=== PATIENT | male | born 1990 | race African-American/Black ===

== ENCOUNTER 2017-03-08 06:37 | Day surgery (SDC) | payer OTHER ==
[2017-03-07 11:33] VITALS: BMI 30.6
[2017-03-08] MEDS ORDERED: PROPOFOL 20 ML ONE ×3 (07:56)
[2017-03-08] MEDS ORDERED: MIDAZOLAM HCL 2 MG/2 ML SINGLE DOSE VIAL ONE ×2 (07:57)
[2017-03-08] MEDS ORDERED: SUCCINYLCHOLINE CHLORIDE 200 MG/10 ML VIAL ONE (07:57)
[2017-03-08] MEDS ORDERED: ROCURONIUM BROMIDE 50 MG/5 ML VIAL ONE (07:57)
[2017-03-08] MEDS ORDERED: LIDOCAINE 1%/EPI 1:100000 (50 ML MULTI DOSE VIAL) ONE ×2 (08:03→09:11)
[2017-03-08] MEDS ORDERED: COCAINE HCL 4% TOPICAL SOLUTION 4 ML BOTTLE TP ONE ×2 (08:07→09:48)
[2017-03-08] MEDS ORDERED: LIDOCAINE 1%/EPI 1:100000 (20 ML MULTI DOSE VIAL) INF ONE ×2 (08:46)
[2017-03-08] MEDS ORDERED: ONDANSETRON 4 MG/2 ML VIAL ONE (10:08)
[2017-03-08] MEDS ORDERED: DEXAMETHASONE SOD PHOSPHATE 4 MG/1 ML VIAL ONE ×2 (10:08→13:49)
[2017-03-08] MEDS ORDERED: KETOROLAC TROMETHAMINE 30 MG/1 ML VIAL ONE (10:09)
[2017-03-08] MEDS ORDERED: NEOSTIGMINE METHYLSULFATE 0.5 MG/ML - 10 ML MDV ONE (10:11)
[2017-03-08] MEDS ORDERED: DEXAMETHASONE SOD PHOSPHATE 10 MG/1 ML VIAL IVPUSH ONE (10:24)
[2017-03-08] MEDS ORDERED: NALOXONE HCL 0.4 MG/ML VIAL ONE (10:24)
[2017-03-08] MEDS ORDERED: ACETAMINOPHEN 650 MG/20.3 ML ORAL SOLUTION (CUPS) PO PRN (10:24)
[2017-03-08] MEDS ORDERED: OXYCODONE/APAP 5/325MG COMBO TABLET PO PRN (10:24)
[2017-03-08] MEDS ORDERED: ONDANSETRON 4 MG/2 ML VIAL IVPUSH PRN (11:28)
[2017-03-08] MEDS ORDERED: oxyCODONE HCL 5 MG TABLET PO PRN (12:54)
[2017-03-08] MEDS ORDERED: ACETAMINOPHEN 325 MG TABLET (FP) PO PRN (12:54)
[2017-03-08] MEDS: DEXAMETHASONE SOD PHOSPHATE 10 MG/1 ML VIAL IVPUSH ONE ×2 (14:05→14:30)
[2017-03-08] MEDS: LACTATED RINGERS SOLUTION 1,000 ML IV SCH ×2 (15:00→22:57)
[2017-03-08] MEDS: morphine CARPU-JECT 4 MG/1 ML DISP.SYRIN IVPUSH PRN (20:27)
[2017-03-08] MEDS ORDERED: SUCRALFATE 1 GM/10 ML UNIT DOSE CUPS PO SCH (22:00)
[2017-03-08] MEDS ORDERED: RANITIDINE HCL 150 MG/10 ML UNIT-DOSE CUP PO SCH (22:00)
[2017-03-09] MEDS: morphine CARPU-JECT 4 MG/1 ML DISP.SYRIN IVPUSH PRN (02:32)
--- NOTE | 2017-03-09 08:39 | OP ---
DATE OF OPERATION: 03/08/2017 SURGEON: Donny Johnson MD PREOPERATIVE DIAGNOSIS: Severe obstructive sleep apnea, microglossia, adenotonsillar hypertrophy, deviated septum, and turbinate hypertrophy. POSTOPERATIVE DIAGNOSIS: Severe obstructive sleep apnea, microglossia, adenotonsillar hypertrophy, deviated septum, and turbinate hypertrophy. PROCEDURE: Partial midline glossectomy, adenotonsillectomy, septoplasty, and submucosal resection of bilateral inferior turbinates. INDICATIONS: Patient is a 26-year-old male who has a history of chronic severe snoring, witnessed apnea, and daytime fatigue. He had a previous sleep study which showed evidence of very severe obstructive sleep apnea with an AHI index of 107 with oxygen desaturation at 74%. He was unable to tolerate CPAP despite prolonged attempts and adjustments. He also has chronic nasal congestion, mouth breathing. On serial exam, he was noted to have marked tonsil and adenoid hypertrophy with edematous uvula and marked microglossia as well as marked deviated septum bilaterally and turbinate hypertrophy, and given lack of response to gradual medical therapy, he is now here for formal surgery. Patient understands risks, benefits, and alternatives and did wish to proceed. ANESTHESIA: General with endotracheal intubation. DESCRIPTION OF PROCEDURE: The patient was brought to the operating room and placed in the supine position. After successful induction of anesthesia and placement of an endotracheal tube, a shoulder roll was placed, and the patients face was prepped and draped in the usual sterile fashion. The McIvor mouth gag was placed into the oral cavity and retracted open to expose the pharynx, which was suspended from the Jones stand. The tonsils were noted to be 3.5+ bilaterally and markedly cryptic and filled with necrotic debris. The tonsillar fossa was injected with 8 mL of 1% lidocaine with 1:100,000 epinephrine. After exam, the Coblation device with the EVac Xtra handpiece was used to perform a subcapsular removal of bilateral tonsils, preserving anterior and posterior tonsillar pillar mucosa. Bleeding was controlled using bipolar Coblation device. No active bleeding was noted. Attention was then brought to the nasopharynx where a red rubber catheter was placed into the left nasal cavity into the nasopharynx and retracted superiorly. The nasopharynx was visualized in a mirror, and it was noted to have significant adenoid hypertrophy. Adenoids were ablated using Coblation device under mirror visualization, and bleeding was controlled with bipolar. Catheter and mouth gag were removed. There was no evidence of injury to dentition or mucosa. Attention was then brought to the tongue. A 2-0 silk was used to retract the tongue anteriorly. The 30-degree endoscope was brought in to visualize the oropharynx and hypopharynx, and the Coblation device with the EVac Xtra handpiece was used to perform a wedge resection of the posterior tongue along the midline extending from 1 cm anterior to the circumvallate papillae, posteriorly into the vallecula. Dissection was carried within 1.5 cm of the midline to ensure integrity of the lingual neurovascular supply, and more posteriorly, dissection was carried laterally, and the lingual tonsils were also ablated as visualized. Epiglottis was noted and left intact. Bleeding was controlled with the bipolar. No active bleeding was noted, and 2-0 silk was removed. Attention was then brought to the nasal cavity, and pledgets soaked in 4% cocaine were placed in the bilateral nasal cavities for vasoconstriction. Additional 8 mL of 1% lidocaine with 1:100,000 epinephrine were then injected into bilateral septal mucosa as well as inferior turbinate mucosa. The septum was addressed first. A standard right-sided hemitransfixtion incision was made, and a mucoperichondrial flap then elevated on the right side. A vertically oriented septal cartilage incision was made leaving a 2 cm anterior and superior strut, and a mucoperichondrial flap then elevated on the opposite side. Area of deflected cartilage was removed using a swivel knife as well as Alida forceps and Bodfish-Keller loop forceps, with improvement in the nasal airway. No [id number] septal perforation was noted, and septal mucosa was meshed to itself using 3-0 chromic sutures. Attention was then brought to the inferior turbinates. A stab incision was made anteriorly. A submucosal tunnel was created. The microdebrider with the inferior turbinate handpiece was used for submucosal removal of tissue anteriorly and superiorly down to the level of the periosteum. The inferior turbinates were now outfractured. NasoPore gel packing was placed into the bilateral nasal cavities for further hemostasis. The patent tolerated the procedure well and was extubated and brought to the recovery room in stable condition. ESTIMATED BLOOD LOSS: 50 mL. SPECIMENS: Bilateral tonsils and septal cartilage. DONNY JOHNSON M.D. MIRIAM/[id number] cc: Jessica Verduzco MD
--- NOTE | 2017-03-09 09:20 | PN ---
Progress Note (short form) - Note Progress Note: ANESTHESIOLOGY POST-OP CHECK 26M s/p tonsillectomy, adenoidectomy, septoplasty and glossectomy under general anesthesia, POD #1. No acute complaints. Pain 7/10 and tolerable. Ambulating, voiding, denies N/V. Vital Signs Temperature 98.7 F 03/09/17 06:29 Pulse Rate 99 H 03/09/17 06:29 Respiratory Rate 20 03/09/17 06:29 Blood Pressure 123/70 03/09/17 06:29 O2 Sat by Pulse Oximetry (%) 99 03/08/17 21:03 Active Medications Acetaminophen (Tylenol Oral Solution -) 650 mg PO Q4H PRN PRN Reason: FEVER OR PAIN Acetaminophen (Tylenol -) 650 mg PO Q6H PRN PRN Reason: PAIN 6-10 Fentanyl (Sublimaze Injection -) 50 mcg IVPUSH [id number] PRN PRN Reason: PAIN Stop: 03/11/17 11:29 Lactated Ringer's (Lactated Ringers Solution) 1,000 mls @ 125 mls/hr IV ASDIR [facility] Last Admin: 03/08/17 22:57 Dose: 125 mls/hr Morphine Sulfate (Morphine Injection -) 4 mg IVPUSH Q4H PRN PRN Reason: PAIN Last Admin: 03/09/17 02:32 Dose: 4 mg Oxycodone HCl (Roxicodone -) 10 mg PO Q6H PRN PRN Reason: PAIN 6-10 Ranitidine HCl (Zantac Oral Solution -) 150 mg PO BID [facility] Last Admin: 03/08/17 21:53 Dose: 150 mg Sucralfate (Carafate Oral Suspension -) 1 gm PO BID [facility] Last Admin: 03/08/17 21:53 Dose: 1 gm Gen: awake, alert, NAD No apparent anesthesia complications. Pain controlled. Continue management as per primary team.
[2017-03-09 09:58] VITALS: BP 129/75; PULSE 98; TEMP 98.9
--- NOTE | 2017-03-09 15:34 | PATH ---
Surgical Pathology Report Patient Name: ALICE PERES [facility]. Rec. #: [id number] /Age/Gender: 1990 (Age: 26) / M Account: [id number] Location: AMBULATORY SURG Taken: 03/08/2017 Received: 03/08/2017 Reported: 03/09/2017 Physicians: Donny Godinez M.D. Specimen(s) Received A: TONSIL, RIGHT B: TONSIL, LEFT C: NASAL SEPTUM AND CARTILAGE Clinical History Deviated nasal septum, hypertrophic tonsils, macroglossia Final Diagnosis A. TONSIL, RIGHT, EXCISION: REACTIVE FOLLICULAR LYMPHOID HYPERPLASIA. B. TONSIL, LEFT, EXCISION: REACTIVE FOLLICULAR LYMPHOID HYPERPLASIA. C. NASAL SEPTUM, PARTIAL EXCISION: BONE AND CARTILAGE CONSISTENT WITH PORTIONS OF NASAL SEPTUM. Electronically Signed Doug Sebastian M.D. Gross Description A. Received in formalin labeled "right tonsil," is a 3.3 x 2.3 x 1.2 cm ovoid portion of soft tissue, consistent with a tonsil. The outer surface is jaramillo-pink, convoluted and varies from smooth to cauterized. Sectioning reveals homogeneous jaramillo-pink, smooth parenchyma with cryptic architecture. No discrete lesions are identified. A ambulatory services representative section is submitted in one cassette. B. Received in formalin labeled "tonsil left," is a 3.5 x 1.9 x 1.4 cm ovoid portion of soft tissue, consistent with a tonsil. The outer surface is jaramillo-pink, convoluted and varies from smooth to cauterized. Sectioning reveals homogeneous jaramillo-pink, smooth parenchyma with cryptic architecture. No discrete lesions are identified. A ambulatory services representative section is submitted in one cassette. C. Received in formalin labeled "nasal septum and cartilage," is a 3.1 x 2.0 x 0.2 cm aggregate of jaramillo, irregular portions of bone and cartilage. Pattern Technician sections are submitted in one cassette, following decalcification. 03/08/201703/08/2017
== END 2017-03-09 09:56 | disposition home or self-care (01) ==
LOC: JASUSAT 06:37 → JASU-SURG 06:37 → J4S 14:32 → JASUSAT 03-09 09:56
PROVIDERS: ATTEND Otolaryngology
PROC: 09BL0ZZ Excision of Nasal Turbinate, Open Approach (ICD-10-PCS; 2017-03-08)
PROC: 0CB70ZZ Excision of Tongue, Open Approach (ICD-10-PCS; principal; 2017-03-08 08:00)
PROC: 0CTPXZZ Resection of Tonsils, External Approach (ICD-10-PCS; 2017-03-08 08:00)
PROC: 0CTQ0ZZ Resection of Adenoids, Open Approach (ICD-10-PCS; 2017-03-08 08:00)
PROC: 09BM0ZZ Excision of Nasal Septum, Open Approach (ICD-10-PCS; 2017-03-08 08:00)
DX: G47.33 Obstructive sleep apnea (adult) (pediatric) (principal); Q38.3 Other congenital malformations of tongue; J35.03 Chronic tonsillitis and adenoiditis; J34.2 Deviated nasal septum; J34.3 Hypertrophy of nasal turbinates
CPT/HCPCS: 88302-TC; 88304-TC; 88311-TC; 94760

== ENCOUNTER 2019-05-26 18:18 | Inpatient (IN) | payer OTHER ==
--- NOTE | 2019-05-26 19:49 | PDOC ---
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 denies dysuria, discharge from penis. denies STI exposure. No pmhx Past History - Past Medical History Allergies/Adverse Reactions: Allergies Allergy/AdvReac Type Severity Reaction Status Date / Time azithromycin Allergy Verified 05/26/19 22:37 ceftriaxone Allergy Verified 05/26/19 22:37 Home Medications: Ambulatory Orders NK [No Known Home Medication] 03/07/17 Anemia: No Asthma: No Cancer: No Cardiac Disorders: No CVA: No COPD: No CHF: No Dementia: No Diabetes: No GI Disorders: No Disorders: No HTN: No Hypercholesterolemia: No Liver Disease: No Seizures: No Thyroid Disease: No - Psycho Social/Smoking Cessation Hx Smoking History: Current every day smoker Information on smoking cessation initiated: Yes Hx Alcohol Use: No Drug/Substance Use Hx: No Hx Substance Use Treatment: No Review of Systems - Review of Systems Able to Perform ROS?: Yes Is the patient limited Belarusian proficient: No Constitutional: No: Symptoms Reported, See HPI, Chills, Diaphoresis, Fever, Loss of Appetite, Malaise, Night Sweats, Weakness, Weight Stable, Unintentional Wgt. Loss, Unexplained wgt Loss, Other : Yes: Testicular Mass, Testicular Swelling. No: Symptoms Reported, See HPI, Burning, Dysuria, Discharge, Frequency, Flank Pain, Hematuria, Incontinence, Pain, Urgency, Lesions, Testicular Pain, Other *Physical Exam - Vital Signs Last Vital Signs Temp Pulse Resp BP Pulse Ox 98.7 F 76 19 121/73 99 05/26/19 18:25 05/26/19 18:25 05/26/19 18:25 05/26/19 18:25 05/26/19 18:25 - Physical Exam General Appearance: Yes: Appropriately Dressed Respiratory/Chest: positive: Lungs Clear, Normal Breath Sounds Cardiovascular: positive: Regular Rhythm, Regular Rate Male Genitalia: positive: testicular tenderness, testicular mass (left testicular mass, no cremasteric reflex noted to left + cremasteric to right). negative: epididymus tender, inguinal hernia, hernia Extremity: positive: Normal Capillary Refill Integumentary: positive: Normal Color, Dry, Warm Neurologic: positive: Fully Oriented, Alert, Normal Mood/Affect ED Treatment Course - LABORATORY CBC & Chemistry Diagram: 05/26/19 20:53 05/26/19 20:53 Medical Decision Making - Medical Decision Making 05/26/19 21:11 Scrotal ultrasound: Space a complex mass lesion with cystic and soft tissue components is seen within the left scrotum posteriorly measuring approximately 3.3 x 3 x 2.4 cm. Finding appears to be separate from the left epididymis. 05/26/19 21:24 Dr. barney retail operations specialist. paged the number retail operations specialist. pending call back from Urology 05/26/19 21:56 . Case discussed with Dr. Shanks recommends n.p.o., ceftriaxone to cover possible infection. Recommends admitting tonight. 05/26/19 22:38 SHORTLY AFTER RECEIVING CEFTRIAXONE PATIENT WITH THROAT PAIN, LIP SWELLING, UVULA SWELLING. CEFTRIAXONE STOPPED. 05/26/19 22:41 S/P EPI, SOLUMEDROL AND BENADCRYL. UVUAL SWELLING DECREASED, LIP SWELLING DECREASED. NO BREATHING DIFFICULTY NOTED. 05/27/19 01:45 patient admitted under hospitalist service Discharge - Discharge Information Problems reviewed: Yes Clinical Impression/Diagnosis: Testicular mass Allergic drug reaction Qualifiers: Encounter type: initial encounter Qualified Code(s): T78.40XA - Allergy, unspecified, initial encounter Anaphylactic reaction Qualifiers: Encounter type: initial encounter Qualified Code(s): T78.2XXA - Anaphylactic shock, unspecified, initial encounter - Admission Yes - Follow up/Referral - Patient Discharge Instructions - Post Discharge Activity
[2019-05-26 20:36] LABS: PH,URINE 5.5 (5.0-8.0); URINE APPEARANCE CLEAR; URINE BILIRUBIN NEGATIVE (NEGATIVE); URINE COLOR YELLOW; URINE GLUCOSE (UA) NEGATIVE (NEGATIVE); URINE KETONE NEGATIVE (NEGATIVE); URINE LEUK ESTERASE NEGATIVE (NEGATIVE); URINE NITRITE NEGATIVE (NEGATIVE); URINE PROTEIN NEGATIVE (NEGATIVE)
[2019-05-26 21:13] LABS: BASO % 0.4 % (0-2.0); EOS % 3.2 % (0-4.5); HEMATOCRIT 47.6 % (35.4-49); HEMOGLOBIN 16.2 GM/dL (11.7-16.9); LYMPH % 31.4 % (8-40); MCH 31.7 pg (25.7-33.7); MEAN CELL VOLUME 93.1 fl (80-96); MEAN PLT VOLUME 8.6 fl (7.5-11.1); MONO % 9.9 % (3.8-10.2); NEUT % 55.1 % (42.8-82.8); PLATELET COUNT 320 K/MM3 (134-434); RBC 5.11 M/mm3 (4.00-5.60); RDW 12.6 % (11.9-15.9); WHITE BLOOD COUNT 11.9 K/mm3 (4.0-10.0)
[2019-05-26 21:36] LABS: INR 1.06 (0.83-1.09); PROTHROMBIN TIME (PATIENT) 12.5 SEC (9.7-13.0)
[2019-05-26] MEDS ORDERED: CEFTRIAXONE 1,000 MG in DEXTROSE 5%-WATER - 50 ML IVPB ONE (21:38)
[2019-05-26 21:53] LABS: BILIRUBIN,TOTAL 0.4 mg/dL (0.2-1); BLOOD UREA NITROGEN 22.1 mg/dL (7-18); CALCIUM 9.1 mg/dL (8.5-10.1); CREATININE 1.2 mg/dL (0.55-1.3); POTASSIUM 3.8 mmol/L (3.5-5.1); TOT PROT 7.6 g/dl (6.4-8.2)
[2019-05-26] MEDS ORDERED: CEFTRIAXONE 1 GM/50 ML BAG ONE (21:53)
[2019-05-26] MEDS ORDERED: FAMOTIDINE 20 MG/50 ML IVPB 20 MG/50 ML MG IVPB ONE ×2 (22:17→22:47)
[2019-05-26] MEDS ORDERED: methylPREDNISolone NA SUCC 1000 MG/8 ML VIAL IVPB ONE (22:17)
[2019-05-26] MEDS ORDERED: methylPREDNISolone NA SUCC 125 MG/2 ML VIAL ONE (22:19)
[2019-05-26] MEDS ORDERED: EPINEPHrine/PF 1 MG/1 ML (1:1,000) AMPULE ONE (22:25)
[2019-05-26] MEDS ORDERED: methylPREDNISolone NA SUCC 125 MG/2 ML VIAL IVPUSH ONE (22:44)
[2019-05-26] MEDS ORDERED: EPINEPHrine 1:1,000 0.3 MG/0.3 ML SYR IM ONE (22:45)
[2019-05-26] MEDS ORDERED: methylPREDNISolone NA SUCC 1000 MG/8 ML VIAL ONE (22:47)
--- NOTE | 2019-05-26 22:48 | PN ---
Teaching Attending Note Name of Resident: Wolfgang Velazquez ATTENDING PHYSICIAN STATEMENT I saw and evaluated the patient. I reviewed the resident's note and discussed the case with the resident. I agree with the resident's findings and plan as documented. 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 Denies dysuria, discharge from penis. No fevers or history of trauma. Denied significant weight loss, Patient received ceftriaxone in ER and developed allergic reaction with angioedema to face. He subsequently received epi pen, methylprednisone, benadryl, and famotidine. OBJECTIVE: Last Vital Signs Temp Pulse Resp BP Pulse Ox 98.7 F 71 16 118/53 L 98 05/26/19 18:25 05/27/19 01:14 05/27/19 01:14 05/27/19 01:14 05/27/19 01:14 gen -aax3 heent - clear sclera,, moist mucous membranes cv -s1+s2+rrr chest- cta b/l abd -soft, nt GI -left scrota hard mass Abnormal Lab Results 05/26/19 05/26/19 05/26/19 20:53 20:53 20:53 WBC 11.9 H PTT (Actin FS) 38.0 H BUN 22.1 H AST 14 L Imaging reviewed Scrotal ultrasound: Space a complex mass lesion with cystic and soft tissue components is seen within the left scrotum posteriorly measuring approximately 3.3 x 3 x 2.4 cm. Finding appears to be separate from the left epididymis. ASSESSMENT AND PLAN: Left Scrotal mass with dimensions described as above- concerning for testicular cancer. Bhcg was wnl. Leukocytosis may be reactive to mass. Clean UA, no dysuria or other urinary symptoms suggest against UTI. Severe allergic reaction to ceftriaxone Much improve after received solumedrol , epi pen, benadryl -med/surg -monitor VS closely -methylprednisone 40mg IV q8hrs -benadryl 25mg q6hrs -urology evaluation -tylenol po prn for testicular mass pain -avoid ceftriaxone or other B-lactam antibiotics -f/u gc/chlamydia urine NAAT -dvt ppx -heparin sc #Mild norma -iv fluid hydration
--- NOTE | 2019-05-26 23:03 | HP ---
CHIEF COMPLAINT: PCP: none HISTORY OF PRESENT ILLNESS: 28 y/o/m with PMHx of sleep apnea here for a testicular mass that he noted today. Patient states that he was driving when he felt some pain in his scrotum and noticed a lump on his left testicle. When he came home he noticed his left testis was hard and larger compared to his right and had his significant other look at it who agreed that it looked different and brought him to the hospital. The pain is intermittent, sharp, worse when he is sitting. He is able to walk with some pain. He states he has had congestion and cold symptoms for the last few days. Patient denies any dysuria, discharge, N/V/D, fever, constipation, or other symptoms at home. Patient does not take medications at home. Denies any history of STI's. Patient had an allergic reaction azithromycin last year when he went to [facility] for an URI. On interview patient had just received ceftriaxone and complained of difficulty breathing and swallowing, sore throat, and swelling of his lips. Patient was able to swallow some water. Family history of COPD and CAD on his mother's side. No known family history of cancer. ER course was notable for: (1) Scrotal ultrasound: Space a complex mass lesion with cystic and soft tissue components is seen within the left scrotum posteriorly measuring approximately 3.3 x 3 x 2.4 cm. Finding appears to be separate from the left epididymis. (2) Dr. Shanks consulted, recommended NPO, Ceftriaxone and admission (3) Received Ceftriaxone, immediately had lip swelling, throat pain, uvula swelling. Ceftriaxone stopped. Patient given Epi, Benadryl, Solumedrol with improvement of symptoms. Recent Travel: PAST MEDICAL HISTORY: sleep apnea PAST SURGICAL HISTORY: tonsillectomy, adenoidectomy, septoplasty, glossectomy Social History: Smoking: denies Alcohol: social EtOH Drugs: denies Patient is sexually active with one partner, does not use protection. Allergies azithromycin Allergy (Verified 05/26/19 22:37) ceftriaxone Allergy (Verified 05/26/19 22:37) HOME MEDICATIONS: Home Medications Medication Instructions Recorded NK [No Known Home Medication] 03/07/17 REVIEW OF SYSTEMS Constitutional: moderate distress. denies weakness, fever. HEENT: sore throat, lip swelling. no changes in vision Cardio: denies chest pain Resp: SOB, congestion. denies productive cough. wheezing GI: Nausea. denies abd pain, vomiting, diarrhea, constipation : testicular mass. denies dysuria, hematuria, discharge SKIN: denies rashes PHYSICAL EXAMINATION Vital Signs - 24 hr 05/26/19 18:25 Temperature 98.7 F Pulse Rate 76 Respiratory 19 Rate Blood Pressure 121/73 O2 Sat by Pulse 99 Oximetry (%) GENERAL: moderate distress. Awake, alert, and fully oriented HEAD: NC/AT EYES: PERRL, EOMI EARS, NOSE, THROAT: congested nasal pharynx, swelling of oropharynx without erythema, able to visualize the uvula. Moist mucous membranes. NECK: supple, no cervical lymphadenopathy LUNGS: No stridor. Breath sounds equal, clear to auscultation bilaterally. No wheezes, and no crackles. No accessory muscle use. HEART: Regular rate and rhythm, normal S1 and S2 without murmur, rub or gallop. ABDOMEN: normoactive bowel sounds, soft, nontender, nondistended : Enlarged left testis compared to right testis. Firm, non mobile mass felt on superior and posterior aspect of left testis with tenderness to palpation and without erythema of the scrotum. No varicoceles noted. Right testis normal to palpation. No drainage noted from penile meatus. No swelling of the penis noted. No lesions noted on the penile shaft. UPPER EXTREMITIES: 2+ pulses, warm, well-perfused. No cyanosis. No clubbing. No peripheral edema. LOWER EXTREMITIES: 2+ pulses, warm, well-perfused. No peripheral edema. NEUROLOGICAL: Normal speech. Normal gait. 5/5 strength upper and lower extremities. PSYCHIATRIC: Cooperative. Good eye contact. Appropriate mood and affect. SKIN: Warm, dry, normal turgor, no rashes or lesions noted, normal capillary refill. Laboratory Results - last 24 hr 05/26/19 05/26/19 05/26/19 20:19 20:53 20:53 WBC 11.9 H RBC 5.11 Hgb 16.2 Hct 47.6 MCV 93.1 MCH 31.7 MCHC 34.0 RDW 12.6 Plt Count 320 MPV 8.6 Absolute Neuts (auto) 6.5 Neutrophils % 55.1 Lymphocytes % 31.4 Monocytes % 9.9 Eosinophils % 3.2 Basophils % 0.4 Nucleated RBC % 0 PT with INR INR PTT (Actin FS) Sodium 141 Potassium 3.8 Chloride 106 Carbon Dioxide 27 Anion Gap 9 BUN 22.1 H Creatinine 1.2 Est GFR (CKD-EPI)AfAm 94.14 Est GFR (CKD-EPI)NonAf 81.23 Random Glucose 106 Calcium 9.1 Total Bilirubin 0.4 AST 14 L ALT 36 Alkaline Phosphatase 69 LD Total 183 Total Protein 7.6 Albumin 4.0 Beta HCG, Quant 1.2 Urine Color Yellow Urine Appearance Clear Urine pH 5.5 Ur Specific Cardale 1.026 Urine Protein Negative Urine Glucose (UA) Negative Urine Ketones Negative Urine Blood Negative Urine Nitrite Negative Urine Bilirubin Negative Urine Urobilinogen 1.0 Ur Leukocyte Esterase Negative Blood Type Antibody Screen 05/26/19 05/26/19 20:53 20:53 WBC RBC Hgb Hct MCV MCH MCHC RDW Plt Count MPV Absolute Neuts (auto) Neutrophils % Lymphocytes % Monocytes % Eosinophils % Basophils % Nucleated RBC % PT with INR 12.50 INR 1.06 PTT (Actin FS) 38.0 H Sodium Potassium Chloride Carbon Dioxide Anion Gap BUN Creatinine Est GFR (CKD-EPI)AfAm Est GFR (CKD-EPI)NonAf Random Glucose Calcium Total Bilirubin AST ALT Alkaline Phosphatase LD Total Total Protein Albumin Beta HCG, Quant Urine Color Urine Appearance Urine pH Ur Specific Cardale Urine Protein Urine Glucose (UA) Urine Ketones Urine Blood Urine Nitrite Urine Bilirubin Urine Urobilinogen Ur Leukocyte Esterase Blood Type O POSITIVE Antibody Screen Negative ASSESSMENT/PLAN: 28 y/o/m with PMHx of sleep apnea here for a testicular mass that he noted today. 1)Testicular Mass - patient with newly noticed left testicular mass today -Scrotal U/S shows a 3.3 x 3 x 2.4 cm mass in the left testis with cystic and soft tissue components. -Consulted Dr. Shanks, Urology. Recommended - NPO, Ceftriaxone, admission to hospital -Patient received Ceftriaxone but immediately had an allergic reaction, abx discontinued -Will hold further abx, patient is afebrile with mild leukocystosis, testicular mass looks to be more cancerous than infectious in origin -NPO in anticipation of possible procedure -Ofirmev Q6h PRN for pain 2)Allergic reaction - patient has history of allergy to azithromycin, had an allergic reaction to ceftriaxone in ED -Received Benadryl, Solumedrol, Epi in the ER -Continue Bendaryl 25mg Q6H PO, Solumedrol 40mg IV Q8, Famotidine 20mg BID -monitor O2 saturation 3)NA - mild -IVF 4)FEN -NPO in anticipation of possible procedure -NS @ 75mls/hr 5)Prophylaxis -SCDs -Hold anticoags in anticipation of possible procedure 6)Disposition -Admitted to med/surg Visit type - Emergency Visit Emergency Visit: Yes ED Registration Date: 05/26/19 Care time: The patient presented to the Emergency Department on the above date and was hospitalized for further evaluation of their emergent condition. - New Patient This patient is new to me today: Yes Date on this admission: 05/27/19 - Critical Care Critical Care patient: No ATTENDING PHYSICIAN STATEMENT I saw and evaluated the patient. I reviewed the resident's note and discussed the case with the resident. I agree with the resident's findings and plan as documented. SUBJECTIVE: OBJECTIVE: ASSESSMENT AND PLAN:
[2019-05-26] MEDS: SODIUM CHLORIDE 1,000 ML IV SCH (23:57)
[2019-05-27] MEDS ORDERED: diphenhydrAMINE HCL 25 MG CAPSULE (FP) PO PRN (00:21)
[2019-05-27] MEDS ORDERED: methylPREDNISolone NA SUCC 40 MG/1 ML VIAL ONE ×2 (01:06→10:05)
[2019-05-27] MEDS: methylPREDNISolone NA SUCC 40 MG/1 ML VIAL IVPUSH SCH ×3 (01:10→18:12)
[2019-05-27] MEDS ORDERED: diphenhydrAMINE HCL 25 MG CAPSULE (FP) PO SCH (04:30)
[2019-05-27] MEDS ORDERED: diphenhydrAMINE HCL 25 MG CAPSULE (FP) PO ONE (06:12)
[2019-05-27 06:35] LABS: HEMATOCRIT 48.2 % (35.4-49); HEMOGLOBIN 16.8 GM/dL (11.7-16.9); MCH 32.6 pg (25.7-33.7); MEAN CELL VOLUME 93.3 fl (80-96); MEAN PLT VOLUME 8.7 fl (7.5-11.1); PLATELET COUNT 330 K/MM3 (134-434); RBC 5.16 M/mm3 (4.00-5.60); WHITE BLOOD COUNT 11.8 K/mm3 (4.0-10.0)
[2019-05-27 07:06] LABS: BILIRUBIN,TOTAL 0.6 mg/dL (0.2-1); BLOOD UREA NITROGEN 19.2 mg/dL (7-18); CALCIUM 9.3 mg/dL (8.5-10.1); POTASSIUM 4.4 mmol/L (3.5-5.1)
--- NOTE | 2019-05-27 08:23 | PN ---
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 Denies dysuria, discharge from penis. No fevers or history of trauma. Denied significant weight loss, Patient received ceftriaxone in ED and developed allergic reaction with angioedema to face. He subsequently received epi pen, methylprednisone, benadryl, and famotidine. - Current Medication List Current Medications: Active Medications Acetaminophen (Ofirmev Injection -) 1,000 mg IVPB Q6H PRN PRN Reason: PAIN LEVEL 1-5 Diphenhydramine HCl (Benadryl -) 25 mg PO Q6HPO [facility] Sodium Chloride (Normal Saline -) 1,000 mls @ 75 mls/hr IV ASDIR FARHAN Last Admin: 05/26/19 23:57 Dose: 75 mls/hr Famotidine/Sodium Chloride (Pepcid 20 Mg Premixed Ivpb -) 20 mg in 50 mls @ 100 mls/hr IVPB BID [facility] Methylprednisolone Sodium Succinate (Solu-Medrol -) 40 mg IVPUSH Q8H-IV [facility] Last Admin: 05/27/19 01:10 Dose: 40 mg - Objective Vital Signs: Vital Signs Temperature 98.2 F 05/27/19 06:28 Pulse Rate 99 H 05/27/19 06:28 Respiratory Rate 18 05/27/19 06:28 Blood Pressure 132/76 05/27/19 06:28 O2 Sat by Pulse Oximetry (%) 98 05/27/19 06:31 Additional Findings/Remarks: GENERAL: moderate distress. Awake, alert, and fully oriented HEAD: NC/AT EYES: PERRL, EOMI EARS, NOSE, THROAT: congested nasal pharynx, swelling of oropharynx without erythema, able to visualize the uvula. Moist mucous membranes. NECK: supple, no cervical lymphadenopathy LUNGS: No stridor. Breath sounds equal, clear to auscultation bilaterally. No wheezes, and no crackles. No accessory muscle use. HEART: Regular rate and rhythm, normal S1 and S2 without murmur, rub or gallop. ABDOMEN: normoactive bowel sounds, soft, nontender, nondistended : Enlarged left testis compared to right testis. Firm, non mobile mass felt on superior and posterior aspect of left testis with tenderness to palpation and without erythema of the scrotum. No varicoceles noted. Right testis normal to palpation. No drainage noted from penile meatus. No swelling of the penis noted. No lesions noted on the penile shaft. UPPER EXTREMITIES: 2+ pulses, warm, well-perfused. No cyanosis. No clubbing. No peripheral edema. LOWER EXTREMITIES: 2+ pulses, warm, well-perfused. No peripheral edema. NEUROLOGICAL: Normal speech. Normal gait. 5/5 strength upper and lower extremities. PSYCHIATRIC: Cooperative. Good eye contact. Appropriate mood and affect. SKIN: Warm, dry, normal turgor, no rashes or lesions noted, normal capillary refill. Labs: CBC, BMP 05/27/19 06:11 05/27/19 06:11 INR, PTT INR 1.06 (0.83-1.09) 05/26/19 20:53 - ....Imaging Ultrasound: Report Reviewed (Scrotal ultrasound: Space a complex mass lesion with cystic and soft tissue components is seen within the left scrotum posteriorly measuring approximately 3.3 x 3 x 2.4 cm. Finding appears to be separate from the left epididymis.) Problem List - Problems (1) Prophylactic measure Assessment/Plan: FEN IVF NPO until after testing monitor electrolyes DVT ambulatory low risk Dispo maintain as in patient full code discharge planning to home Code(s): Z29.9 - ENCOUNTER FOR PROPHYLACTIC MEASURES, UNSPECIFIED (2) Anaphylactic reaction Assessment/Plan: developed drug reaction with andioedema after dose of ceftriaxone given epi/benadryl/steroids/pepcid with resolution cont to monitor Code(s): T78.2XXA - ANAPHYLACTIC SHOCK, UNSPECIFIED, INITIAL ENCOUNTER Qualifiers: Encounter type: initial encounter Qualified Code(s): T78.2XXA - Anaphylactic shock, unspecified, initial encounter (3) Testicular mass Assessment/Plan: Scrotal ultrasound: Space a complex mass lesion with cystic and soft tissue components is seen within the left scrotum posteriorly measuring approximately 3.3 x 3 x 2.4 cm. Finding appears to be separate from the left epididymis. MRI of scrotum ordered and pending Dr Matamoros following Code(s): N50.89 - OTHER SPECIFIED DISORDERS OF THE MALE GENITAL ORGANS Visit type - Emergency Visit Emergency Visit: Yes ED Registration Date: 05/26/19 Care time: The patient presented to the Emergency Department on the above date and was hospitalized for further evaluation of their emergent condition. - New Patient This patient is new to me today: Yes Date on this admission: 05/28/19 - Critical Care Critical Care patient: No - Discharge Referral Referred to [facility] No
--- NOTE | 2019-05-27 09:48 | CON.GU ---
Consult Consult Specialty:: Urology Referred by:: ED Reason for Consultation:: 28 yo male w 2 days left hemiscrotal pain and swelling - Alcohol/Substance Use Hx Alcohol Use: No - Smoking History Smoking history: Current every day smoker Home Medications - Allergies Allergies/Adverse Reactions: Allergies Allergy/AdvReac Type Severity Reaction Status Date / Time azithromycin Allergy Verified 05/26/19 22:37 ceftriaxone Allergy Verified 05/26/19 22:37 - Home Medications Home Medications: Ambulatory Orders NK [No Known Home Medication] 03/07/17 Physical Exam- Vital Signs: Vital Signs Temperature 98.2 F 05/27/19 06:28 Pulse Rate 99 H 05/27/19 06:28 Respiratory Rate 18 05/27/19 06:28 Blood Pressure 132/76 05/27/19 06:28 O2 Sat by Pulse Oximetry (%) 98 05/27/19 06:31 Renal/: Yes: Scrotal Edema (left testicular/epididymal tenderness swelling and induration) Labs: CBC, BMP 05/27/19 06:11 05/27/19 06:11 Imaging - Results Ultrasound: Report Reviewed, Image Reviewed Problem List - Problems (1) Testicular mass Assessment/Plan: 28 yo male w left testicular mass Elevated WBC likely secondary to infection though could be elevated in if were a mass Clinical course more consistant w infection LDH and B neg so far AFP pending Cont IV abx MRI of the scrotum to elucidate clinical etiology Code(s): N50.89 - OTHER SPECIFIED DISORDERS OF THE MALE GENITAL ORGANS
[2019-05-27] MEDS ORDERED: FAMOTIDINE 20 MG/50 ML IVPB 20 MG/50 ML MG IVPB ONE (09:49)
[2019-05-27] MEDS: FAMOTIDINE 20 MG/50 ML IVPB 20 MG/50 ML MG IVPB SCH ×2 (09:55→21:50)
[2019-05-27] MEDS ORDERED: ACETAMINOPHEN INJECTION 100 ML IVPB ONE (11:45)
[2019-05-27] MEDS: ACETAMINOPHEN 1000 MG/100 ML VIAL (NON FORMULARY) IVPB PRN (11:49)
[2019-05-27 13:29] VITALS: BMI 31.9
--- NOTE | 2019-05-27 13:42 | CON.ID ---
Consult Consult Specialty:: infectious diseases Referred by:: Carole Reason for Consultation:: scrotal swelling /testicular swelling and pain - History of Present Illness Chief Complaint: testicular swelling History of Present Illness: 28 y/o/m with PMHx of sleep apnea here for a testicular mass that he noted today. Patient states that he was driving when he felt some pain in his scrotum and noticed a lump on his left testicle. When he came home he noticed his left testis was hard and larger compared to his right and had his significant other look at it who agreed that it looked different and brought him to the hospital. The pain is intermittent, sharp, worse when he is sitting. He is able to walk with some pain. He states he has had congestion and cold symptoms for the last few days. Patient denies any dysuria, discharge, N/V/D, fever, constipation, or other symptoms at home. patient currently is comfortable and no complaints family in room - History Source History Provided By: Patient Limitations to Obtaining History: No Limitations - Alcohol/Substance Use Hx Alcohol Use: No - Smoking History Smoking history: Former smoker Have you smoked in the past 12 months: No Home Medications - Allergies Allergies/Adverse Reactions: Allergies Allergy/AdvReac Type Severity Reaction Status Date / Time azithromycin Allergy Verified 05/26/19 22:37 ceftriaxone AdvReac Severe Difficulty Verified 05/28/19 15:54 Breathing - Home Medications Home Medications: Ambulatory Orders NK [No Known Home Medication] 03/07/17 Review of Systems - Review of Systems Constitutional: reports: No Symptoms Eyes: reports: No Symptoms HENT: reports: No Symptoms Neck: reports: No Symptoms Cardiovascular: reports: No Symptoms Respiratory: reports: No Symptoms Gastrointestinal: reports: No Symptoms Genitourinary: reports: Other (testicular pain,enlargement) Musculoskeletal: reports: No Symptoms Integumentary: reports: No Symptoms Neurological: reports: No Symptoms Endocrine: reports: No Symptoms Hematology/Lymphatic: reports: No Symptoms Psychiatric: reports: No Symptoms Physical Exam Vital Signs: Vital Signs Temperature 98.6 F 05/27/19 13:19 Pulse Rate 86 05/27/19 13:19 Respiratory Rate 18 05/27/19 13:19 Blood Pressure 123/70 05/27/19 13:19 O2 Sat by Pulse Oximetry (%) 96 05/27/19 12:27 Constitutional: Yes: Well Nourished, Calm, Mild Distress Neck: Yes: Supple, Trachea Midline Cardiovascular: Yes: Regular Rate and Rhythm Respiratory: Yes: Regular, CTA Bilaterally Gastrointestinal: Yes: Normal Bowel Sounds, Soft Renal/: Yes: Other (swelling and firmness of the lt testicle) Musculoskeletal: Yes: WNL Extremities: Yes: WNL Integumentary: Yes: WNL Neurological: Yes: Alert, Oriented Labs: CBC, BMP 05/27/19 06:11 05/27/19 06:11 Imaging - Results Chest X-ray: Report Reviewed, Image Reviewed Ultrasound: Report Reviewed, Image Reviewed Assessment/Plan 28 y/o/m with PMHx of sleep apnea here for a testicular mass that he noted today. testicular mass NA - mild i am worried that this could be malignancy plan will hold of on starting any abx continue current [facility] urology on case patient for mri of the scrotum will see what it shows
[2019-05-27] MEDS: diphenhydrAMINE HCL 25 MG CAPSULE (FP) PO SCH ×2 (15:40→18:00)
[2019-05-27] MEDS: SODIUM CHLORIDE 1,000 ML IV SCH ×2 (18:13→23:54)
[2019-05-28] MEDS: diphenhydrAMINE HCL 25 MG CAPSULE (FP) PO SCH ×3 (00:03→11:45)
[2019-05-28] MEDS: methylPREDNISolone NA SUCC 40 MG/1 ML VIAL IVPUSH SCH ×3 (01:58→17:38)
[2019-05-28] MEDS: SODIUM CHLORIDE 1,000 ML IV SCH ×2 (06:07→23:00)
--- NOTE | 2019-05-28 07:53 | PN ---
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 Denies dysuria, discharge from penis. No fevers or history of trauma. Denied significant weight loss, Patient received ceftriaxone in ED and developed allergic reaction with angioedema to face. He subsequently received epi pen, methylprednisone, benadryl, and famotidine. - Current Medication List Current Medications: Active Medications Acetaminophen (Ofirmev Injection -) 1,000 mg IVPB Q6H PRN PRN Reason: PAIN LEVEL 1-5 Last Admin: 05/27/19 11:49 Dose: 1,000 mg Diphenhydramine HCl (Benadryl -) 25 mg PO Q6HPO [facility] Last Admin: 05/28/19 06:08 Dose: 25 mg Sodium Chloride (Normal Saline -) 1,000 mls @ 75 mls/hr IV ASDIR FARHAN Last Admin: 05/28/19 06:07 Dose: 75 mls/hr Famotidine/Sodium Chloride (Pepcid 20 Mg Premixed Ivpb -) 20 mg in 50 mls @ 100 mls/hr IVPB BID [facility] Last Admin: 05/27/19 21:50 Dose: 100 mls/hr Methylprednisolone Sodium Succinate (Solu-Medrol -) 40 mg IVPUSH Q8H-IV [facility]AN Last Admin: 05/28/19 01:58 Dose: 40 mg - Objective Vital Signs: Vital Signs Temperature 97.7 F 05/28/19 05:00 Pulse Rate 75 05/28/19 05:00 Respiratory Rate 17 05/28/19 05:00 Blood Pressure 109/83 05/28/19 05:00 O2 Sat by Pulse Oximetry (%) 99 05/27/19 21:00 Additional Findings/Remarks: GENERAL: moderate distress. Awake, alert, and fully oriented HEAD: NC/AT EYES: PERRL, EOMI EARS, NOSE, THROAT: congested nasal pharynx, swelling of oropharynx without erythema, able to visualize the uvula. Moist mucous membranes. NECK: supple, no cervical lymphadenopathy LUNGS: No stridor. Breath sounds equal, clear to auscultation bilaterally. No wheezes, and no crackles. No accessory muscle use. HEART: Regular rate and rhythm, normal S1 and S2 without murmur, rub or gallop. ABDOMEN: normoactive bowel sounds, soft, nontender, nondistended : Enlarged left testis compared to right testis. Firm, non mobile mass felt on superior and posterior aspect of left testis with tenderness to palpation and without erythema of the scrotum. No varicoceles noted. Right testis normal to palpation. No drainage noted from penile meatus. No swelling of the penis noted. No lesions noted on the penile shaft. UPPER EXTREMITIES: 2+ pulses, warm, well-perfused. No cyanosis. No clubbing. No peripheral edema. LOWER EXTREMITIES: 2+ pulses, warm, well-perfused. No peripheral edema. NEUROLOGICAL: Normal speech. Normal gait. 5/5 strength upper and lower extremities. PSYCHIATRIC: Cooperative. Good eye contact. Appropriate mood and affect. SKIN: Warm, dry, normal turgor, no rashes or lesions noted, normal capillary refill. Labs: CBC, BMP 05/27/19 06:11 05/27/19 06:11 INR, PTT INR 1.06 (0.83-1.09) 05/26/19 20:53 - ....Imaging Ultrasound: Report Reviewed (Scrotal ultrasound: Space a complex mass lesion with cystic and soft tissue components is seen within the left scrotum posteriorly measuring approximately 3.3 x 3 x 2.4 cm. Finding appears to be separate from the left epididymis.)) MRI: Report Reviewed ( 3.8 x 3.2 x 2.6 cm enhancing left intratesticular mass suggestive of malignancy until proven otherwise. 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 No inguinal adenopathy seen. CT scan of the abdomen and pelvis is recommended for staging and excluding retroperitoneal lymphadenopathy.) Problem List - Problems (1) Prophylactic measure Assessment/Plan: FEN IVF NPO until after testing monitor electrolyes DVT ambulatory low risk Dispo maintain as in patient full code discharge planning to home Code(s): Z29.9 - ENCOUNTER FOR PROPHYLACTIC MEASURES, UNSPECIFIED (2) Anaphylactic reaction Assessment/Plan: resolved change benadryl to PRN allergy noted to ceftriaxone in computer Problems reviewed: Yes Code(s): T78.2XXA - ANAPHYLACTIC SHOCK, UNSPECIFIED, INITIAL ENCOUNTER Qualifiers: Encounter type: initial encounter Qualified Code(s): T78.2XXA - Anaphylactic shock, unspecified, initial encounter (3) Testicular mass Assessment/Plan: MRI noted CT pending for staging and exclusion of retroperitoneal adenopathy Dr Matamoros following AFP 19 Beta negative paln Left testicular mass for radical orchiectomy NPO past MN Type and screen done Code(s): N50.89 - OTHER SPECIFIED DISORDERS OF THE MALE GENITAL ORGANS Visit type - Emergency Visit Emergency Visit: Yes ED Registration Date: 05/26/19 Care time: The patient presented to the Emergency Department on the above date and was hospitalized for further evaluation of their emergent condition. - New Patient This patient is new to me today: No - Critical Care Critical Care patient: No - Discharge Referral Referred to [facility] No
[2019-05-28] MEDS: FAMOTIDINE 20 MG/50 ML IVPB 20 MG/50 ML MG IVPB SCH ×2 (09:56→21:32)
[2019-05-28 12:00] LABS: BASO % 0.1 % (0-2.0); HEMATOCRIT 47.6 % (35.4-49); HEMOGLOBIN 16.2 GM/dL (11.7-16.9); LYMPH % 10.9 % (8-40); MCH 32.1 pg (25.7-33.7); MCHC 34.1 g/dl (32.0-35.9); MEAN CELL VOLUME 94.4 fl (80-96); MEAN PLT VOLUME 8.4 fl (7.5-11.1); MONO % 6.1 % (3.8-10.2); NEUT % 82.9 % (42.8-82.8); PLATELET COUNT 346 K/MM3 (134-434); RBC 5.04 M/mm3 (4.00-5.60); WHITE BLOOD COUNT 13.1 K/mm3 (4.0-10.0)
--- NOTE | 2019-05-28 12:12 | PN ---
Progress Note, Physician History of Present Illness: stable no new issues awaiting for the mri report - Current Medication List Current Medications: Active Medications Acetaminophen (Ofirmev Injection -) 1,000 mg IVPB Q6H PRN PRN Reason: PAIN LEVEL 1-5 Last Admin: 05/27/19 11:49 Dose: 1,000 mg Diphenhydramine HCl (Benadryl -) 25 mg PO Q6HPO [facility] Last Admin: 05/28/19 11:45 Dose: 25 mg Sodium Chloride (Normal Saline -) 1,000 mls @ 75 mls/hr IV ASDIR FARHAN Last Admin: 05/28/19 06:07 Dose: 75 mls/hr Famotidine/Sodium Chloride (Pepcid 20 Mg Premixed Ivpb -) 20 mg in 50 mls @ 100 mls/hr IVPB BID [facility]AN Last Admin: 05/28/19 09:56 Dose: 100 mls/hr Methylprednisolone Sodium Succinate (Solu-Medrol -) 40 mg IVPUSH Q8H-IV [facility]AN Last Admin: 05/28/19 09:56 Dose: 40 mg - Objective Vital Signs: Vital Signs Temperature 97.5 F L 05/28/19 09:54 Pulse Rate 98 H 05/28/19 09:54 Respiratory Rate 19 05/28/19 09:54 Blood Pressure 118/60 05/28/19 09:54 O2 Sat by Pulse Oximetry (%) 99 05/27/19 21:00 Constitutional: Yes: No Distress, Calm Cardiovascular: Yes: Regular Rate and Rhythm Respiratory: Yes: Regular, CTA Bilaterally Gastrointestinal: Yes: Normal Bowel Sounds, Soft Genitourinary: Yes: Other (testicular pain) Musculoskeletal: Yes: WNL Extremities: Yes: WNL Neurological: Yes: Alert, Oriented Psychiatric: Yes: Alert, Oriented Labs: CBC, BMP 05/28/19 11:40 INR, PTT INR 1.06 (0.83-1.09) 05/26/19 20:53 Assessment/Plan 28 y/o/m with PMHx of sleep apnea here for a testicular mass that he noted today. testicular mass NA - mild plan continue current mgmt await for mri result monitor off of abx for now rest as per the team
[2019-05-28 12:19] LABS: ALBUMIN 3.8 g/dl (3.4-5.0); BILIRUBIN,TOTAL 0.4 mg/dL (0.2-1); BLOOD UREA NITROGEN 18.8 mg/dL (7-18); MAGNESIUM 2.7 mg/dL (1.8-2.4); TOT PROT 7.6 g/dl (6.4-8.2)
--- NOTE | 2019-05-28 15:57 | PN.GI ---
GI Progress Note Subjective: left testicular swelling w mild tenderness MRI appreciated - Objective Vital Signs: Vital Signs Temperature 97.8 F 05/28/19 15:13 Pulse Rate 92 H 05/28/19 15:13 Respiratory Rate 20 05/28/19 15:13 Blood Pressure 119/67 05/28/19 15:13 O2 Sat by Pulse Oximetry (%) 99 05/28/19 09:00 Labs: CBC, BMP 05/28/19 11:40 05/28/19 11:40 INR, PTT INR 1.06 (0.83-1.09) 05/26/19 20:53 Assessment/Plan Left testicular mass Scheduled for left radical orchiectomy in am For CT scan today Problem List - Problems (1) Testicular mass Assessment/Plan: Left testicular mass for radical orchiectomy AFP abnormal Code(s): N50.89 - OTHER SPECIFIED DISORDERS OF THE MALE GENITAL ORGANS
[2019-05-28] MEDS ORDERED: diphenhydrAMINE HCL 25 MG CAPSULE (FP) PO PRN (16:22)
[2019-05-28] MEDS: ACETAMINOPHEN 1000 MG/100 ML VIAL (NON FORMULARY) IVPB PRN (19:59)
[2019-05-29] MEDS: ACETAMINOPHEN 1000 MG/100 ML VIAL (NON FORMULARY) IVPB PRN ×2 (00:54→18:54)
[2019-05-29] MEDS: methylPREDNISolone NA SUCC 40 MG/1 ML VIAL IVPUSH SCH ×2 (01:04→09:27)
[2019-05-29] MEDS: FAMOTIDINE 20 MG/50 ML IVPB 20 MG/50 ML MG IVPB SCH ×2 (09:27→21:39)
[2019-05-29] MEDS ORDERED: LIDOCAINE HCL/PF 2% SDV 5ML VIAL ONE (09:48)
[2019-05-29] MEDS ORDERED: MIDAZOLAM HCL 2 MG/2 ML SINGLE DOSE VIAL ONE (09:49)
[2019-05-29] MEDS ORDERED: fentaNYL CITRATE 250 MCG/5 ML VIAL ONE (09:49)
[2019-05-29] MEDS ORDERED: PROPOFOL 20 ML ONE ×2 (09:49)
[2019-05-29] MEDS ORDERED: ONDANSETRON 4 MG/2 ML VIAL IVPUSH PRN (10:09)
[2019-05-29] MEDS ORDERED: IBUPROFEN 800 MG/8 ML IJ IVPB PRN (10:09)
[2019-05-29] MEDS ORDERED: DEXAMETHASONE SOD PHOSPHATE 4 MG/1 ML VIAL ONE (11:01)
[2019-05-29] MEDS ORDERED: BUPIVACAINE HCL/PF 0.5% (5 MG/ML) 30 ML VIAL IJ ONE (11:25)
[2019-05-29] MEDS ORDERED: IBUPROFEN 800 MG/8 ML IJ IVPB ONE ×2 (11:53→12:00)
[2019-05-29] MEDS ORDERED: ACETAMINOPHEN INJECTION 100 ML IVPB ONE (11:53)
[2019-05-29] MEDS ORDERED: ACETAMINOPHEN 1000 MG/100 ML VIAL (NON FORMULARY) IVPB ONE (11:55)
--- NOTE | 2019-05-29 12:06 | OP ---
DATE OF OPERATION: DATE OF DICTATION: 05/29/2019 PREOPERATIVE DIAGNOSIS: Left testicle mass. POSTOPERATIVE DIAGNOSIS: Left testicle mass. PROCEDURE: Left radical orchiectomy. SURGEON: Jacob Broussard MD INDICATION: The patient is a 28-year-old male with ultrasound and MRI that confirm left testicle mass, also has elevated alpha-fetoprotein. He is taken to the OR for radical orchiectomy. Risks, benefits, and alternatives discussed in detail. After informed consent was obtained, patient in OR, placed supine on the table. Cardiac monitoring was administered. General anesthesia established. The low abdomen and groin and testicles were prepped and draped in standard surgical fashion. At this point, an approximately 4-cm incision was created into the left groin with a number 15 blade, through the subcutaneous tissue. Naeem fascia was identified and incised and then the cord was identified emanating from the external ring. The external ring was incised and the cord was grasped and the testicle delivered from the scrotum. A Ramonita drain was placed to constrict the cord to prevent migration of blood superiorly. At this point, the testicle was freed from its scrotal wall attachment and then at this point the cord was suture ligated with number 1 Vicryl suture ligature, followed by 0 silk tie high at the level of the internal ring. The specimen was then amputated and the testicle with cord was sent to Pathology for analysis. The stump that was left in the patient was then tied down and there was no evidence of any bleeding from that stump. The external oblique aponeurosis was then closed with a 2-0 Vicryl suture. The subcutaneous tissue was closed with interrupted 3-0 chromic and the skin was closed with a 4-0 Monocryl followed by Dermabond. Dry dressing with fluffs and scrotal support were then placed. The patient was then awoke from anesthesia and transferred to recovery room in stable condition. There were no complications. Estimated blood loss was minimal. JACOB BROUSSARD M.D. [id number]
--- NOTE | 2019-05-29 12:10 | EKG ---
Test Reason : Blood Pressure : / mmHG Vent. Rate : 059 BPM Atrial Rate : 059 BPM P-R Int : 168 ms QRS Dur : 108 ms QT Int : 426 ms P-R-T Axes : 051 031 027 degrees QTc Int : 421 ms SINUS BRADYCARDIA EARLY REPOLARIZATION OTHERWISE NORMAL ECG NO PREVIOUS ECGS AVAILABLE Confirmed by CHRISTIAN GAYLE MD ([id number]) on 05/29/2019 12:09:54 PM Referred By: Confirmed By:CHRISTIAN GAYLE MD
--- NOTE | 2019-05-29 13:26 | PN ---
Progress Note, Physician History of Present Illness: stable no new issues mri seen and results noted urology plan noted - Current Medication List Current Medications: Active Medications Acetaminophen (Ofirmev Injection -) 1,000 mg IVPB Q6H PRN PRN Reason: PAIN LEVEL 1-5 Last Admin: 05/29/19 00:54 Dose: 1,000 mg Diphenhydramine HCl (Benadryl -) 25 mg PO Q6H PRN PRN Reason: ALLERGIES Fentanyl (Sublimaze Injection -) 50 mcg IVPUSH [id number] PRN PRN Reason: PAIN-PACU ORDER X 4 DOSES ONLY Sodium Chloride (Normal Saline -) 1,000 mls @ 75 mls/hr IV ASDIR FARHAN Last Admin: 05/28/19 23:00 Dose: 75 mls/hr Famotidine/Sodium Chloride (Pepcid 20 Mg Premixed Ivpb -) 20 mg in 50 mls @ 100 mls/hr IVPB BID F[facility]AN Last Admin: 05/29/19 09:27 Dose: 100 mls/hr Lactated Ringer's (Lactated Ringers Solution) 1,000 mls @ 125 mls/hr IV ASDIR FARHAN Ibuprofen (Caldolor Injection -) 800 mg IVPB Q6H PRN PRN Reason: Pain - Pacu Methylprednisolone Sodium Succinate (Solu-Medrol -) 40 mg IVPUSH Q8H-IV [facility]AN Last Admin: 05/29/19 09:27 Dose: 40 mg Ondansetron HCl (Zofran Injection) 4 mg IVPUSH Q6H PRN PRN Reason: NAUSEA AND/OR VOMITING - Objective Vital Signs: Vital Signs Temperature 98.1 F 05/29/19 11:45 Pulse Rate 72 05/29/19 12:45 Respiratory Rate 16 05/29/19 12:45 Blood Pressure 148/78 05/29/19 12:45 O2 Sat by Pulse Oximetry (%) 96 05/29/19 12:45 Constitutional: Yes: No Distress, Calm Cardiovascular: Yes: Regular Rate and Rhythm Respiratory: Yes: Regular, CTA Bilaterally Gastrointestinal: Yes: Normal Bowel Sounds, Soft Musculoskeletal: Yes: WNL Extremities: Yes: WNL Neurological: Yes: Alert, Oriented Psychiatric: Yes: Alert, Oriented Labs: CBC, BMP 05/28/19 11:40 05/28/19 11:40 INR, PTT INR 1.06 (0.83-1.09) 05/26/19 20:53 Assessment/Plan 28 y/o/m with PMHx of sleep apnea here for a testicular mass that he noted today. testicular mass NA - mild testicular malignancy plan patient for surgery await for ct of the abd pelvis reading
[2019-05-29] MEDS ORDERED: MORPHINE SULFATE 2 MG/ML VIAL IVPUSH PRN ×2 (14:37→21:40)
[2019-05-29] MEDS: LACTATED RINGERS SOLUTION 1,000 ML IV SCH (14:44)
--- NOTE | 2019-05-29 15:39 | PN ---
Physical Exam: SUBJECTIVE: Patient seen and examined at the bedside. OBJECTIVE: Patient is a 28 year old male admitted on 05/26/2019 for left testicular pain and swelling. Denies dysuria or discharge from penis. No fevers or history of trauma. Denied significant weight loss, Patient received ceftriaxone in ED and developed allergic reaction with angioedema to face. He subsequently received epi pen, methylprednisone, benadryl, and famotidine. Vital Signs Period Temp Pulse Resp BP Sys/Tate Pulse Ox Last 24 Hr 97.5 F-98.4 F 62-80 13-20 132-158/66-100 95-100 GENERAL: The patient is awake, alert, and fully oriented, in no acute distress. HEAD: Normal with no signs of trauma. EYES: PERRL, extraocular movements intact, sclera anicteric, conjunctiva clear. No ptosis. ENT: Ears normal, nares patent, oropharynx clear without exudates, moist mucous membranes. NECK: Trachea midline, full range of motion, supple. LUNGS: clear to auscultation bilaterally, no wheezing HEART: Regular rate and rhythm, S1, S2 without murmur, rub or gallop. ABDOMEN: Soft, nontender, nondistended, normoactive bowel sounds, no guarding, no rebound, no hepatosplenomegaly, no masses. EXTREMITIES: 2+ pulses, warm, well-perfused, no edema. NEUROLOGICAL: Normal speech, gait not observed. PSYCH: Normal mood, normal affect. SKIN: Warm, dry, normal turgor, no rashes or lesions noted Laboratory Results - last 24 hr 05/26/19 20:19 C. trachomatis (SHAWNEE) Negative N. gonorrhoeae (SHAWNEE) Negative Active Medications Generic Name Dose Route Start Last Admin Trade Name Freq PRN Reason Stop Dose Admin Acetaminophen 1,000 mg 05/26/19 23:19 05/29/19 00:54 Ofirmev Injection - IVPB 1,000 mg Q6H PRN Administration PAIN LEVEL 1-5 Diphenhydramine HCl 25 mg 05/28/19 16:22 Benadryl - PO Q6H PRN ALLERGIES Fentanyl 50 mcg 05/29/19 10:09 Sublimaze Injection - IVPUSH [id number] PRN PAIN-PACU ORDER X 4 DOSES ONLY Sodium Chloride 1,000 mls @ 75 mls/hr 05/26/19 23:15 05/28/19 23:00 Normal Saline - IV 75 mls/hr ASDIR FARHAN Administration Famotidine/Sodium Chloride 20 mg in 50 mls @ 100 mls/hr 05/27/19 10:00 09:27 Pepcid 20 Mg Premixed Ivpb - IVPB 100 mls/hr BID FARHAN Administration Lactated Ringer's 1,000 mls @ 125 mls/hr 05/29/19 10:15 05/29/19 14:44 Lactated Ringers Solution IV Not Given ASDIR FARHAN Ibuprofen 800 mg 05/29/19 10:09 Caldolor Injection - IVPB Q6H PRN Pain - Pacu Methylprednisolone Sodium Succinate 40 mg 05/27/19 02:00 05/29/19 09:27 Solu-Medrol - IVPUSH 40 mg Q8H-IV FARHAN Administration Morphine Sulfate 2 mg 05/29/19 14:37 05/29/19 14:55 Morphine Sulfate IVPUSH 2 mg Q4H PRN Administration PAIN 6-10 Ondansetron HCl 4 mg 05/29/19 10:09 Zofran Injection IVPUSH Q6H PRN NAUSEA AND/OR VOMITING ASSESSMENT/PLAN: Problem List - Problems (1) Allergic drug reaction Assessment/Plan: resolved benadryl prn, oxygen stable on room air, no wheezing, no difficulty breathing stop solumedrol Code(s): T78.40XA - ALLERGY, UNSPECIFIED, INITIAL ENCOUNTER Qualifiers: Encounter type: initial encounter Qualified Code(s): T78.40XA - Allergy, unspecified, initial encounter (2) Anaphylactic reaction Assessment/Plan: resolved Code(s): T78.2XXA - ANAPHYLACTIC SHOCK, UNSPECIFIED, INITIAL ENCOUNTER Qualifiers: Encounter type: initial encounter Qualified Code(s): T78.2XXA - Anaphylactic shock, unspecified, initial encounter (3) Testicular mass Assessment/Plan: MRI noted s/p surgical Left testicular mass radical orchiectomy urology following awaiting pathology Code(s): N50.89 - OTHER SPECIFIED DISORDERS OF THE MALE GENITAL ORGANS (4) Prophylactic measure Assessment/Plan: FEN IVF monitor electrolyes DVT ambulatory Dispo maintain as in patient full code discharge planning to home Code(s): Z29.9 - ENCOUNTER FOR PROPHYLACTIC MEASURES, UNSPECIFIED Visit type - Emergency Visit Emergency Visit: Yes ED Registration Date: 05/26/19 Care time: The patient presented to the Emergency Department on the above date and was hospitalized for further evaluation of their emergent condition. - New Patient This patient is new to me today: Yes Date on this admission: 05/29/19 - Critical Care Critical Care patient: No - Discharge Referral Referred to [facility] No
[2019-05-29] MEDS: SODIUM CHLORIDE 1,000 ML IV SCH (17:05)
[2019-05-29] MEDS: traMADol HCL 50 MG TABLET PO PRN (22:48)
[2019-05-30] MEDS: SODIUM CHLORIDE 1,000 ML IV SCH ×2 (00:36→10:30)
[2019-05-30] MEDS: ACETAMINOPHEN 325 MG TABLET (FP) PO PRN (06:14)
--- NOTE | 2019-05-30 08:42 | PN ---
Progress Note (short form) - Note Progress Note: POD1 s/p radical orchiectomy under GA. Resting comfortable in bed, pain well controlled, VSS, no anesthetic issues/complications noted.
[2019-05-30 09:49] LABS: BASO % 0.1 % (0-2.0); EOS % 0.1 % (0-4.5); HEMOGLOBIN 14.9 GM/dL (11.7-16.9); LYMPH % 26.1 % (8-40); MCHC 33.8 g/dl (32.0-35.9); MEAN CELL VOLUME 94.6 fl (80-96); MEAN PLT VOLUME 8.4 fl (7.5-11.1); MONO % 9.9 % (3.8-10.2); NEUT % 63.8 % (42.8-82.8); PLATELET COUNT 289 K/MM3 (134-434); RBC 4.65 M/mm3 (4.00-5.60); RDW 13.1 % (11.9-15.9); WHITE BLOOD COUNT 10.7 K/mm3 (4.0-10.0)
[2019-05-30] MEDS: traMADol HCL 50 MG TABLET PO PRN ×2 (10:06→18:00)
[2019-05-30 10:14] LABS: ALBUMIN 3.2 g/dl (3.4-5.0); BILIRUBIN,TOTAL 0.6 mg/dL (0.2-1); BLOOD UREA NITROGEN 16.2 mg/dL (7-18); CALCIUM 8.2 mg/dL (8.5-10.1); CREATININE 0.9 mg/dL (0.55-1.3); MAGNESIUM 2.7 mg/dL (1.8-2.4); POTASSIUM 3.9 mmol/L (3.5-5.1); TOT PROT 6.4 g/dl (6.4-8.2)
[2019-05-30] MEDS: FAMOTIDINE 20 MG/50 ML IVPB 20 MG/50 ML MG IVPB SCH ×2 (10:30→22:30)
[2019-05-30] MEDS: LACTATED RINGERS SOLUTION 1,000 ML IV SCH (10:57)
--- NOTE | 2019-05-30 11:28 | PN ---
Physical Exam: SUBJECTIVE: Patient seen and examined at the bedside. denies pain, shortness of breath or any malaise. pain controlled currently. OBJECTIVE: Patient is a 28 year old male admitted on 05/26/2019 for left testicular pain and swelling. Denies dysuria or discharge from penis. No fevers or history of trauma. Denied significant weight loss. pelvis MRI showed (3.8 x 3.2 x 2.6 cm) enhancing left intratesticular mass suggestive of malignancy until proven otherwise. 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 No inguinal adenopathy seen. CT A/P: BL prominent pelvis lymph nodes along external iliac chains. He is s/p Left testicular mass radical orchiectomy on 05/29/19. Further plans are pending urology recommendations. On admssion, patient received ceftriaxone in ED and developed allergic reaction with angioedema to face. He subsequently received epi pen, methylprednisone, benadryl, and famotidine. Vital Signs Period Temp Pulse Resp BP Sys/Tate Pulse Ox Last 24 Hr 97.9 F-98.7 F 64-90 13-20 132-158/57-100 95-100 GENERAL: The patient is awake, alert, and fully oriented, in no acute distress. HEAD: Normal with no signs of trauma. EYES: PERRL, extraocular movements intact, sclera anicteric, conjunctiva clear. No ptosis. ENT: Ears normal, nares patent, oropharynx clear without exudates, moist mucous membranes. NECK: Trachea midline, full range of motion, supple. LUNGS: clear to auscultation bilaterally, no wheezing HEART: Regular rate and rhythm, S1, S2 without murmur, rub or gallop. ABDOMEN: Soft, nontender, nondistended, normoactive bowel sounds, no guarding, no rebound, no hepatosplenomegaly, no masses. EXTREMITIES: 2+ pulses, warm, well-perfused, no edema. NEUROLOGICAL: Normal speech, gait not observed. PSYCH: Normal mood, normal affect. SKIN: Warm, dry, normal turgor, no rashes or lesions noted Laboratory Results - last 24 hr 05/30/19 05/30/19 08:40 08:40 WBC 10.7 H RBC 4.65 Hgb 14.9 Hct 44.0 MCV 94.6 MCH 32.0 MCHC 33.8 RDW 13.1 Plt Count 289 MPV 8.4 Absolute Neuts (auto) 6.9 Neutrophils % 63.8 D Lymphocytes % 26.1 D Monocytes % 9.9 Eosinophils % 0.1 D Basophils % 0.1 Nucleated RBC % 0 Sodium 140 Potassium 3.9 Chloride 105 Carbon Dioxide 28 Anion Gap 6 L BUN 16.2 Creatinine 0.9 Est GFR (CKD-EPI)AfAm 133.30 Est GFR (CKD-EPI)NonAf 115.01 Random Glucose 86 Calcium 8.2 L Magnesium 2.7 H Total Bilirubin 0.6 AST 17 ALT 37 Alkaline Phosphatase 43 L Total Protein 6.4 Albumin 3.2 L Active Medications Generic Name Dose Route Start Last Admin Trade Name Freq PRN Reason Stop Dose Admin Acetaminophen 650 mg 05/30/19 05:48 05/30/19 06:14 Tylenol - PO 650 mg Q6H PRN Administration PAIN LEVEL 1-5 Diphenhydramine HCl 25 mg 05/28/19 16:22 Benadryl - PO Q6H PRN ALLERGIES Fentanyl 50 mcg 05/29/19 10:09 Sublimaze Injection - IVPUSH [id number] PRN PAIN-PACU ORDER X 4 DOSES ONLY Sodium Chloride 1,000 mls @ 75 mls/hr 05/26/19 23:15 05/30/19 10:30 Normal Saline - IV 75 mls/hr ASDIR FARHAN Administration Famotidine/Sodium Chloride 20 mg in 50 mls @ 100 mls/hr 05/27/19 10:00 10:30 Pepcid 20 Mg Premixed Ivpb - IVPB 100 mls/hr BID FARHAN Administration Lactated Ringer's 1,000 mls @ 125 mls/hr 05/29/19 10:15 05/30/19 10:57 Lactated Ringers Solution IV Not Given ASDIR FARHAN Ibuprofen 800 mg 05/29/19 10:09 Caldolor Injection - IVPB Q6H PRN Pain - Pacu Ondansetron HCl 4 mg 05/29/19 10:09 Zofran Injection IVPUSH Q6H PRN NAUSEA AND/OR VOMITING Tramadol HCl 50 mg 05/29/19 21:47 05/30/19 10:06 Ultram - PO 50 mg Q8H PRN Administration PAIN LEVEL 6-10 ASSESSMENT/PLAN: Problem List - Problems (1) Testicular mass Assessment/Plan: MRI noted s/p surgical Left testicular mass radical orchiectomy afp elevated urology following awaiting pathology Code(s): N50.89 - OTHER SPECIFIED DISORDERS OF THE MALE GENITAL ORGANS (2) Allergic drug reaction Assessment/Plan: resolved benadryl prn, oxygen stable on room air, no wheezing, no difficulty breathing stop solumedrol Code(s): T78.40XA - ALLERGY, UNSPECIFIED, INITIAL ENCOUNTER Qualifiers: Encounter type: initial encounter Qualified Code(s): T78.40XA - Allergy, unspecified, initial encounter (3) Anaphylactic reaction Assessment/Plan: resolved Code(s): T78.2XXA - ANAPHYLACTIC SHOCK, UNSPECIFIED, INITIAL ENCOUNTER Qualifiers: Encounter type: initial encounter Qualified Code(s): T78.2XXA - Anaphylactic shock, unspecified, initial encounter (4) Prophylactic measure Assessment/Plan: FEN IVF monitor electrolyes DVT ambulatory Dispo maintain as in patient full code discharge planning to home once cleared by urology Code(s): Z29.9 - ENCOUNTER FOR PROPHYLACTIC MEASURES, UNSPECIFIED Visit type - Emergency Visit Emergency Visit: Yes ED Registration Date: 05/26/19 Care time: The patient presented to the Emergency Department on the above date and was hospitalized for further evaluation of their emergent condition. - New Patient This patient is new to me today: No - Critical Care Critical Care patient: No - Discharge Referral Referred to [facility] No
--- NOTE | 2019-05-30 12:00 | PN ---
Progress Note, Physician History of Present Illness: stable no new issues - Current Medication List Current Medications: Active Medications Acetaminophen (Tylenol -) 650 mg PO Q6H PRN PRN Reason: PAIN LEVEL 1-5 Last Admin: 05/30/19 06:14 Dose: 650 mg Diphenhydramine HCl (Benadryl -) 25 mg PO Q6H PRN PRN Reason: ALLERGIES Fentanyl (Sublimaze Injection -) 50 mcg IVPUSH [id number] PRN PRN Reason: PAIN-PACU ORDER X 4 DOSES ONLY Sodium Chloride (Normal Saline -) 1,000 mls @ 75 mls/hr IV ASDIR [facility] Last Admin: 05/30/19 10:30 Dose: 75 mls/hr Famotidine/Sodium Chloride (Pepcid 20 Mg Premixed Ivpb -) 20 mg in 50 mls @ 100 mls/hr IVPB BID [facility] Last Admin: 05/30/19 10:30 Dose: 100 mls/hr Lactated Ringer's (Lactated Ringers Solution) 1,000 mls @ 125 mls/hr IV ASDIR [facility] Last Admin: 05/30/19 10:57 Dose: Not Given Ibuprofen (Caldolor Injection -) 800 mg IVPB Q6H PRN PRN Reason: Pain - Pacu Ondansetron HCl (Zofran Injection) 4 mg IVPUSH Q6H PRN PRN Reason: NAUSEA AND/OR VOMITING Tramadol HCl (Ultram -) 50 mg PO Q8H PRN PRN Reason: PAIN LEVEL 6-10 Last Admin: 05/30/19 10:06 Dose: 50 mg - Objective Vital Signs: Vital Signs Temperature 98.6 F 05/30/19 06:54 Pulse Rate 90 05/30/19 06:54 Respiratory Rate 18 05/30/19 09:00 Blood Pressure 135/59 L 05/30/19 06:54 O2 Sat by Pulse Oximetry (%) 99 05/30/19 09:00 Constitutional: Yes: No Distress, Calm Cardiovascular: Yes: Regular Rate and Rhythm Respiratory: Yes: Regular, CTA Bilaterally Gastrointestinal: Yes: Normal Bowel Sounds, Soft Musculoskeletal: Yes: WNL Extremities: Yes: WNL Neurological: Yes: Alert, Oriented Psychiatric: Yes: Alert, Oriented Labs: CBC, BMP 05/30/19 08:40 05/30/19 08:40 INR, PTT INR 1.06 (0.83-1.09) 05/26/19 20:53 Assessment/Plan 28 y/o/m with PMHx of sleep apnea here for a testicular mass that he noted today. testicular mass NA - mild testicular malignancy plan patient for surgery await for ct of the abd pelvis reading final plan rest as per urology
[2019-05-31] MEDS: traMADol HCL 50 MG TABLET PO PRN (02:43)
[2019-05-31] MEDS: FAMOTIDINE 20 MG/50 ML IVPB 20 MG/50 ML MG IVPB SCH ×2 (11:42→21:43)
--- NOTE | 2019-05-31 12:08 | PN ---
Physical Exam: SUBJECTIVE: Patient seen and examined; POD#2 s/p radical orchiectomy. 10 sys ROS done and negative aside from HPI OBJECTIVE: Vital Signs Period Temp Pulse Resp BP Sys/Tate Pulse Ox Last 24 Hr 97.4 F-99.2 F 70-78 17-18 128-135/57-76 100 GENERAL: The patient is awake, alert, and fully oriented, in no acute distress. HEAD: Normal with no signs of trauma. EYES: PERRL, extraocular movements intact, sclera anicteric ENT: Ears normal, nares patent, oropharynx clear without exudates NECK: Trachea midline, full range of motion, supple. LUNGS: Breath sounds equal, clear to auscultation bilaterally, no wheezes HEART: Regular rate and rhythm, S1, S2 without murmur, rub or gallop. ABDOMEN: Soft, nontender, nondistended, normoactive bowel sounds EXTREMITIES: 2+ pulses, warm, well-perfused, no edema. NEUROLOGICAL: Cranial nerves II through XII grossly intact. Normal speech PSYCH: Normal mood, normal affect. SKIN: Warm, dry, normal turgor, no rashes. Op site with c/d/i bandaging. Active Medications Generic Name Dose Route Start Last Admin Trade Name Freq PRN Reason Stop Dose Admin Acetaminophen 650 mg 05/30/19 05:48 05/30/19 06:14 Tylenol - PO 650 mg Q6H PRN Administration PAIN LEVEL 1-5 Diphenhydramine HCl 25 mg 05/28/19 16:22 Benadryl - PO Q6H PRN ALLERGIES Famotidine/Sodium Chloride 20 mg in 50 mls @ 100 mls/hr 05/27/19 10:00 11:42 Pepcid 20 Mg Premixed Ivpb - IVPB 100 mls/hr BID FARHAN Administration Lactated Ringer's 1,000 mls @ 125 mls/hr 05/29/19 10:15 05/30/19 10:57 Lactated Ringers Solution IV Not Given ASDIR FARHAN Ibuprofen 800 mg 05/29/19 10:09 05/31/19 11:37 Caldolor Injection - IVPB 800 mg Q6H PRN Administration Pain - Pacu Ondansetron HCl 4 mg 05/29/19 10:09 Zofran Injection IVPUSH Q6H PRN NAUSEA AND/OR VOMITING Tramadol HCl 50 mg 05/29/19 21:47 05/31/19 02:43 Ultram - PO 50 mg Q8H PRN Administration PAIN LEVEL 6-10 ASSESSMENT/PLAN: Patient presents for testicular mass and is s/p left sided radical orchiectomy. ID and urology continue to follow; appreciate subspecialty input. Awaiting surgical pathology and defer further care to uro (and onc if indicated) -Testicular mass -Elevated AFP -Allergic Reaction -Obesity (BMI >30) Full Code Visit type - Emergency Visit Emergency Visit: No - New Patient This patient is new to me today: No - Critical Care Critical Care patient: No
[2019-05-31] MEDS: ACETAMINOPHEN 325 MG TABLET (FP) PO PRN (21:43)
--- NOTE | 2019-06-01 12:58 | PN ---
Physical Exam: SUBJECTIVE: Patient seen and examined; POD#3 s/p radical orchiectomy. 10 sys ROS done and negative aside from HPI OBJECTIVE: Vital Signs Period Temp Pulse Resp BP Sys/Tate Pulse Ox Last 24 Hr 97.4 F-99.2 F 70-78 17-18 128-135/57-76 100 GENERAL: The patient is awake, alert, and fully oriented, in no acute distress. HEAD: Normal with no signs of trauma. EYES: PERRL, extraocular movements intact, sclera anicteric ENT: Ears normal, nares patent, oropharynx clear without exudates NECK: Trachea midline, full range of motion, supple. LUNGS: Breath sounds equal, clear to auscultation bilaterally, no wheezes HEART: Regular rate and rhythm, S1, S2 without murmur, rub or gallop. ABDOMEN: Soft, nontender, nondistended, normoactive bowel sounds EXTREMITIES: 2+ pulses, warm, well-perfused, no edema. NEUROLOGICAL: Cranial nerves II through XII grossly intact. Normal speech PSYCH: Normal mood, normal affect. SKIN: Warm, dry, normal turgor, no rashes. Op site with c/d/i bandaging. Active Medications Generic Name Dose Route Start Last Admin Trade Name Freq PRN Reason Stop Dose Admin Acetaminophen 650 mg 05/30/19 05:48 05/30/19 06:14 Tylenol - PO 650 mg Q6H PRN Administration PAIN LEVEL 1-5 Diphenhydramine HCl 25 mg 05/28/19 16:22 Benadryl - PO Q6H PRN ALLERGIES Famotidine/Sodium Chloride 20 mg in 50 mls @ 100 mls/hr 05/27/19 10:00 11:42 Pepcid 20 Mg Premixed Ivpb - IVPB 100 mls/hr BID FARHAN Administration Lactated Ringer's 1,000 mls @ 125 mls/hr 05/29/19 10:15 05/30/19 10:57 Lactated Ringers Solution IV Not Given ASDIR FARHAN Ibuprofen 800 mg 05/29/19 10:09 05/31/19 11:37 Caldolor Injection - IVPB 800 mg Q6H PRN Administration Pain - Pacu Ondansetron HCl 4 mg 05/29/19 10:09 Zofran Injection IVPUSH Q6H PRN NAUSEA AND/OR VOMITING Tramadol HCl 50 mg 05/29/19 21:47 05/31/19 02:43 Ultram - PO 50 mg Q8H PRN Administration PAIN LEVEL 6-10 ASSESSMENT/PLAN: Patient presents for testicular mass and is s/p left sided radical orchiectomy. ID and urology continue to follow; appreciate subspecialty input. Pain remains controlled; discussed with ID Awaiting surgical pathology and defer further care to uro (and onc if indicated) -Testicular mass -Elevated AFP -Allergic Reaction -Obesity (BMI >30) Full Code Visit type - Emergency Visit Emergency Visit: No - New Patient This patient is new to me today: No - Critical Care Critical Care patient: No
[2019-06-01] MEDS: traMADol HCL 50 MG TABLET PO PRN (17:40)
[2019-06-01] MEDS: FAMOTIDINE 20 MG/50 ML IVPB 20 MG/50 ML MG IVPB SCH ×2 (17:40→21:21)
[2019-06-01] MEDS: ACETAMINOPHEN 325 MG TABLET (FP) PO PRN (23:19)
--- NOTE | 2019-06-02 07:36 | PN ---
Progress Note, Physician Chief Complaint: resting comfortably, at bedside. waiting for discharge History of Present Illness: 28 year old male c/o left testicular pain and swelling since eyedotter. Denies dysuria, discharge from penis. No fevers or history of trauma. Denied significant weight loss, Patient received ceftriaxone in ED and developed allergic reaction with angioedema to face. He subsequently received epi pen, methylprednisone, benadryl, and famotidine. - Current Medication List Current Medications: Active Medications Acetaminophen (Tylenol -) 650 mg PO Q6H PRN PRN Reason: PAIN LEVEL 1-5 Last Admin: 06/01/19 23:19 Dose: 650 mg Diphenhydramine HCl (Benadryl -) 25 mg PO Q6H PRN PRN Reason: ALLERGIES Famotidine/Sodium Chloride (Pepcid 20 Mg Premixed Ivpb -) 20 mg in 50 mls @ 100 mls/hr IVPB BID FARHAN Last Admin: 06/01/19 21:21 Dose: Not Given Ibuprofen (Caldolor Injection -) 800 mg IVPB Q6H PRN PRN Reason: Pain - Pacu Last Admin: 05/31/19 11:37 Dose: 800 mg Ondansetron HCl (Zofran Injection) 4 mg IVPUSH Q6H PRN PRN Reason: NAUSEA AND/OR VOMITING - Objective Vital Signs: Vital Signs Temperature 98.1 F 06/02/19 05:00 Pulse Rate 59 L 06/02/19 05:00 Respiratory Rate 20 06/02/19 05:00 Blood Pressure 126/56 L 06/02/19 05:00 O2 Sat by Pulse Oximetry (%) 98 06/01/19 21:00 Additional Findings/Remarks: PHYSICAL EXAM GENERAL: The patient is awake, alert, and fully oriented, in no acute distress. HEAD: Normal with no signs of trauma. EYES: PERRL, extraocular movements intact, sclera anicteric, conjunctiva clear. ENT: Ears normal, nares patent, oropharynx clear without exudates, moist mucous membranes. NECK: Trachea midline, full range of motion, supple. LUNGS: Breath sounds equal, clear to auscultation bilaterally, no wheezes, no crackles, no accessory muscle use. HEART: Regular rate and rhythm, S1, S2 without murmur, rub or gallop. ABDOMEN: Soft, nontender, nondistended, normoactive bowel sounds, no guarding, no rebound, no hepatosplenomegaly, no masses. EXTREMITIES: 2+ pulses, warm, well-perfused, no edema. NEUROLOGICAL: Cranial nerves II through XII grossly intact. Normal speech, gait not observed. PSYCH: Normal mood, normal affect. SKIN: Warm, dry, normal turgor, no rashes or lesions noted. INCISION: tegaderm intact with serous drainage, scrotal support in place Labs: CBC, BMP 05/30/19 08:40 05/30/19 08:40 INR, PTT INR 1.06 (0.83-1.09) 05/26/19 20:53 Problem List - Problems (1) Prophylactic measure Code(s): Z29.9 - ENCOUNTER FOR PROPHYLACTIC MEASURES, UNSPECIFIED (2) Anaphylactic reaction Code(s): T78.2XXA - ANAPHYLACTIC SHOCK, UNSPECIFIED, INITIAL ENCOUNTER Qualifiers: Encounter type: initial encounter Qualified Code(s): T78.2XXA - Anaphylactic shock, unspecified, initial encounter (3) Testicular mass Code(s): N50.89 - OTHER SPECIFIED DISORDERS OF THE MALE GENITAL ORGANS Impression/Plan Impression/Plan: Patient is a 28 year old male admitted on 05/26/2019 for left testicular pain and swelling. pelvis MRI showed (3.8 x 3.2 x 2.6 cm) enhancing left intratesticular mass suggestive of malignanc CT A/P: BL prominent pelvis lymph nodes along external iliac chains. He is s/p Left testicular mass radical orchiectomy on 05/29/19. Further plans are pending urology recommendations. On admssion, patient received ceftriaxone in ED and developed allergic reaction with angioedema to face. He subsequently received epi pen, methylprednisone, benadryl, and famotidine. - Problems (1) Testicular mass Assessment/Plan: MRI noted s/p surgical Left testicular mass radical orchiectomy afp elevated, famotodib urology following awaiting pathology Code(s): N50.89 - OTHER SPECIFIED DISORDERS OF THE MALE GENITAL ORGANS (2) Allergic drug reaction Assessment/Plan: resolved benadryl prn, oxygen stable on room air, no wheezing, no difficulty breathing stop solumedrol, famotodine Code(s): T78.40XA - ALLERGY, UNSPECIFIED, INITIAL ENCOUNTER Qualifiers: Encounter type: initial encounter Qualified Code(s): T78.40XA - Allergy, unspecified, initial encounter (3) Anaphylactic reaction Assessment/Plan: resolved Code(s): T78.2XXA - ANAPHYLACTIC SHOCK, UNSPECIFIED, INITIAL ENCOUNTER Qualifiers: Encounter type: initial encounter Qualified Code(s): T78.2XXA - Anaphylactic shock, unspecified, initial encounter (4) Prophylactic measure Assessment/Plan: FEN regular diet to continue on discharge ambulatory resume gradually normal activity, no heavy lifting for 6 weeks post surgical care as per Dispo discharge planning to home Code(s): Z29.9 - ENCOUNTER FOR PROPHYLACTIC MEASURES, UNSPECIFIED Minutes to complete discharge: 35 Discharge Summary Problems reviewed: Yes Reason For Visit: TESTICULAR MASS Hospital Course: LABS HOSPITAL COURSE: Date of Admission:05/26/19 Date of Discharge: 06/03/19 Patient is a 28 year old male admitted on 05/26/2019 for left testicular pain and swelling. pelvis MRI showed (3.8 x 3.2 x 2.6 cm) enhancing left intratesticular mass suggestive of malignancy CT A/P: BL prominent pelvis lymph nodes along external iliac chains. He is s/p Left testicular mass radical orchiectomy on 05/29/19. Further plans are pending urology recommendations. On admssion, patient received ceftriaxone in ED and developed allergic reaction with angioedema to face. He subsequently received epi pen, methylprednisone, benadryl, and famotidine. - Problems (1) Testicular mass Assessment/Plan: MRI noted s/p surgical Left testicular mass radical orchiectomy afp elevated, famotodib urology following awaiting pathology Code(s): N50.89 - OTHER SPECIFIED DISORDERS OF THE MALE GENITAL ORGANS (2) Allergic drug reaction Assessment/Plan: resolved benadryl prn, oxygen stable on room air, no wheezing, no difficulty breathing stop solumedrol, famotodine Code(s): T78.40XA - ALLERGY, UNSPECIFIED, INITIAL ENCOUNTER Qualifiers: Encounter type: initial encounter Qualified Code(s): T78.40XA - Allergy, unspecified, initial encounter (3) Anaphylactic reaction Assessment/Plan: resolved Code(s): T78.2XXA - ANAPHYLACTIC SHOCK, UNSPECIFIED, INITIAL ENCOUNTER Qualifiers: Encounter type: initial encounter Qualified Code(s): T78.2XXA - Anaphylactic shock, unspecified, initial encounter (4) Prophylactic measure Assessment/Plan: FEN regular diet to continue on discharge ambulatory resume gradually normal activity, no heavy lifting for 6 weeks post surgical care as per Dispo discharge planning to home Code(s): Z29.9 - ENCOUNTER FOR PROPHYLACTIC MEASURES, UNSPECIFIED Condition: Improved - Instructions Referrals: Bhavik Zelaya MD [Staff Physician] - Jacob Burgess MD [Staff Physician] - 1 Week (call office for appointment 1 week) Disposition: HOME - Home Medications Comprehensive Discharge Medication List: Ambulatory Orders Acetaminophen [Tylenol .Regular Strength -] 650 mg PO Q6H PRN tablet 06/02/19 Ibuprofen Injection [Caldolor Injection -] 800 mg IVPB Q6H PRN ij 06/02/19 Prescription Drug Monitoring Program (I-STOP) results: I-STOP reviewed and no issues identified Problem List - Problems (1) Prophylactic measure Code(s): Z29.9 - ENCOUNTER FOR PROPHYLACTIC MEASURES, UNSPECIFIED (2) Anaphylactic reaction Code(s): T78.2XXA - ANAPHYLACTIC SHOCK, UNSPECIFIED, INITIAL ENCOUNTER Qualifiers: Encounter type: initial encounter Qualified Code(s): T78.2XXA - Anaphylactic shock, unspecified, initial encounter (3) Testicular mass Code(s): N50.89 - OTHER SPECIFIED DISORDERS OF THE MALE GENITAL ORGANS This patient is new to me today: No Emergency Visit: Yes ED Registration Date: 05/26/19 Care time: The patient presented to the Emergency Department on the above date and was hospitalized for further evaluation of their emergent condition. Critical Care patient: No - Discharge Referral Referred to [facility] Med P.C.: No Visit type - Emergency Visit Emergency Visit: Yes ED Registration Date: 05/26/19 Care time: The patient presented to the Emergency Department on the above date and was hospitalized for further evaluation of their emergent condition. - New Patient This patient is new to me today: No - Critical Care Critical Care patient: No - Discharge Referral Referred to [facility] Med P.C.: No
[2019-06-02] MEDS: FAMOTIDINE 20 MG/50 ML IVPB 20 MG/50 ML MG IVPB SCH (09:45)
--- NOTE | 2019-06-02 10:51 | PN ---
Progress Note, Physician History of Present Illness: stable no new issues - Current Medication List Current Medications: Active Medications Acetaminophen (Tylenol -) 650 mg PO Q6H PRN PRN Reason: PAIN LEVEL 1-5 Last Admin: 06/01/19 23:19 Dose: 650 mg Diphenhydramine HCl (Benadryl -) 25 mg PO Q6H PRN PRN Reason: ALLERGIES Famotidine/Sodium Chloride (Pepcid 20 Mg Premixed Ivpb -) 20 mg in 50 mls @ 100 mls/hr IVPB BID FARHAN Last Admin: 06/02/19 09:45 Dose: 100 mls/hr Ibuprofen (Caldolor Injection -) 800 mg IVPB Q6H PRN PRN Reason: Pain - Pacu Last Admin: 05/31/19 11:37 Dose: 800 mg Ondansetron HCl (Zofran Injection) 4 mg IVPUSH Q6H PRN PRN Reason: NAUSEA AND/OR VOMITING - Objective Vital Signs: Vital Signs Temperature 98.5 F 06/02/19 10:00 Pulse Rate 75 06/02/19 10:00 Respiratory Rate 20 06/02/19 10:00 Blood Pressure 114/68 06/02/19 10:00 O2 Sat by Pulse Oximetry (%) 98 06/01/19 21:00 Constitutional: Yes: No Distress, Calm Cardiovascular: Yes: S1, S2 Respiratory: Yes: Regular, CTA Bilaterally Gastrointestinal: Yes: Normal Bowel Sounds, Soft Musculoskeletal: Yes: WNL Extremities: Yes: WNL Labs: CBC, BMP 05/30/19 08:40 05/30/19 08:40 INR, PTT INR 1.06 (0.83-1.09) 05/26/19 20:53 Assessment/Plan 28 y/o/m with PMHx of sleep apnea here for a testicular mass that he noted today. 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
[2019-06-02 15:31] VITALS: BP 133/75; PULSE 64; TEMP 98.4
--- NOTE | 2019-06-03 09:43 | DS ---
Physical Exam: SUBJECTIVE: Patient seen and examined OBJECTIVE: Vital Signs Period Temp Pulse Resp BP Sys/Tate Pulse Ox Last 24 Hr 98.4 F-98.5 F 64-75 20-20 114-133/68-75 PHYSICAL EXAM GENERAL: The patient is awake, alert, and fully oriented, in no acute distress. HEAD: Normal with no signs of trauma. EYES: PERRL, extraocular movements intact, sclera anicteric, conjunctiva clear. ENT: Ears normal, nares patent, oropharynx clear without exudates, moist mucous membranes. NECK: Trachea midline, full range of motion, supple. LUNGS: Breath sounds equal, clear to auscultation bilaterally, no wheezes, no crackles, no accessory muscle use. HEART: Regular rate and rhythm, S1, S2 without murmur, rub or gallop. ABDOMEN: Soft, nontender, nondistended, normoactive bowel sounds, no guarding, no rebound, no hepatosplenomegaly, no masses. EXTREMITIES: 2+ pulses, warm, well-perfused, no edema. NEUROLOGICAL: Cranial nerves II through XII grossly intact. Normal speech, gait not observed. PSYCH: Normal mood, normal affect. SKIN: Warm, dry, normal turgor, no rashes or lesions noted. INCISION: tegaderm intact with serous drainage, scrotal support in place LABS HOSPITAL COURSE: Date of Admission:05/26/19 Date of Discharge: 06/03/19 Patient is a 28 year old male admitted on 05/26/2019 for left testicular pain and swelling. pelvis MRI showed (3.8 x 3.2 x 2.6 cm) enhancing left intratesticular mass suggestive of malignanc CT A/P: BL prominent pelvis lymph nodes along external iliac chains. He is s/p Left testicular mass radical orchiectomy on 05/29/19. Further plans are pending urology recommendations. On admssion, patient received ceftriaxone in ED and developed allergic reaction with angioedema to face. He subsequently received epi pen, methylprednisone, benadryl, and famotidine. - Problems (1) Testicular mass Assessment/Plan: MRI noted s/p surgical Left testicular mass radical orchiectomy afp elevated, famotodib urology following awaiting pathology Code(s): N50.89 - OTHER SPECIFIED DISORDERS OF THE MALE GENITAL ORGANS (2) Allergic drug reaction Assessment/Plan: resolved benadryl prn, oxygen stable on room air, no wheezing, no difficulty breathing stop solumedrol, famotodine Code(s): T78.40XA - ALLERGY, UNSPECIFIED, INITIAL ENCOUNTER Qualifiers: Encounter type: initial encounter Qualified Code(s): T78.40XA - Allergy, unspecified, initial encounter (3) Anaphylactic reaction Assessment/Plan: resolved Code(s): T78.2XXA - ANAPHYLACTIC SHOCK, UNSPECIFIED, INITIAL ENCOUNTER Qualifiers: Encounter type: initial encounter Qualified Code(s): T78.2XXA - Anaphylactic shock, unspecified, initial encounter (4) Prophylactic measure Assessment/Plan: FEN regular diet to continue on discharge ambulatory resume gradually normal activity, no heavy lifting for 6 weeks post surgical care as per Dispo discharge planning to home Code(s): Z29.9 - ENCOUNTER FOR PROPHYLACTIC MEASURES, UNSPECIFIED Minutes to complete discharge: 35 Discharge Summary Problems reviewed: Yes Reason For Visit: TESTICULAR MASS Hospital Course: LABS HOSPITAL COURSE: Date of Admission:05/26/19 Date of Discharge: 06/03/19 Patient is a 28 year old male admitted on 05/26/2019 for left testicular pain and swelling. pelvis MRI showed (3.8 x 3.2 x 2.6 cm) enhancing left intratesticular mass suggestive of malignancy CT A/P: BL prominent pelvis lymph nodes along external iliac chains. He is s/p Left testicular mass radical orchiectomy on 05/29/19. Further plans are pending urology recommendations. On admssion, patient received ceftriaxone in ED and developed allergic reaction with angioedema to face. He subsequently received epi pen, methylprednisone, benadryl, and famotidine. - Problems (1) Testicular mass Assessment/Plan: MRI noted s/p surgical Left testicular mass radical orchiectomy afp elevated, famotodib urology following awaiting pathology Code(s): N50.89 - OTHER SPECIFIED DISORDERS OF THE MALE GENITAL ORGANS (2) Allergic drug reaction Assessment/Plan: resolved benadryl prn, oxygen stable on room air, no wheezing, no difficulty breathing stop solumedrol, famotodine Code(s): T78.40XA - ALLERGY, UNSPECIFIED, INITIAL ENCOUNTER Qualifiers: Encounter type: initial encounter Qualified Code(s): T78.40XA - Allergy, unspecified, initial encounter (3) Anaphylactic reaction Assessment/Plan: resolved Code(s): T78.2XXA - ANAPHYLACTIC SHOCK, UNSPECIFIED, INITIAL ENCOUNTER Qualifiers: Encounter type: initial encounter Qualified Code(s): T78.2XXA - Anaphylactic shock, unspecified, initial encounter (4) Prophylactic measure Assessment/Plan: FEN regular diet to continue on discharge ambulatory resume gradually normal activity, no heavy lifting for 6 weeks post surgical care as per Dispo discharge planning to home Code(s): Z29.9 - ENCOUNTER FOR PROPHYLACTIC MEASURES, UNSPECIFIED Condition: Improved - Instructions Referrals: Bhavik Zelaya MD [Staff Physician] - Jacob Burgess MD [Staff Physician] - 1 Week (call office for appointment 1 week) Disposition: HOME - Home Medications Comprehensive Discharge Medication List: Ambulatory Orders Acetaminophen [Tylenol .Regular Strength -] 650 mg PO Q6H PRN tablet 06/02/19 Ibuprofen Injection [Caldolor Injection -] 800 mg IVPB Q6H PRN ij 06/02/19 Prescription Drug Monitoring Program (I-STOP) results: I-STOP reviewed and no issues identified Problem List - Problems (1) Prophylactic measure Code(s): Z29.9 - ENCOUNTER FOR PROPHYLACTIC MEASURES, UNSPECIFIED (2) Anaphylactic reaction Code(s): T78.2XXA - ANAPHYLACTIC SHOCK, UNSPECIFIED, INITIAL ENCOUNTER Qualifiers: Encounter type: initial encounter Qualified Code(s): T78.2XXA - Anaphylactic shock, unspecified, initial encounter (3) Testicular mass Code(s): N50.89 - OTHER SPECIFIED DISORDERS OF THE MALE GENITAL ORGANS This patient is new to me today: No Emergency Visit: Yes ED Registration Date: 05/26/19 Care time: The patient presented to the Emergency Department on the above date and was hospitalized for further evaluation of their emergent condition. Critical Care patient: No - Discharge Referral Referred to [facility] Med P.C.: No
--- NOTE | 2019-06-03 13:35 | PATH ---
Surgical Pathology Report Patient Name: ALICE PERES Med. Rec. #: [id number] /Age/Gender: 1990 (Age: 28) / M Account: [id number] Location: [facility] MED/SURG Taken: 05/29/2019 Received: 05/29/2019 Reported: 06/03/2019 Physicians: Jacob Burgess M.D. 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 TUMOR INVADES RETE TESTIS. GERM CELL NEOPLASIA IN SITU (GCNIS) PRESENT. SPERMATIC CORD MARGIN IS NEGATIVE FOR CARCINOMA. LYMPHOVASCULAR INVASION NOT IDENTIFIED. PATHOLOGIC STAGE (pTNM, AJCC 8th Edition): pT1 pNX ALSO SEE SURGICAL PATHOLOGY CANCER CASE SUMMARY BELOW. Comment: Immunohistochemistry stains (block 4 and 5) performed at [place], [place] ([id number]) interpreted at [facility] show the following results: Tumor cells of seminoma component are positive for OCT3/4, PLAP, CD117, D2-40, negative for AE1/AE3 and Glypican3. Tumor cells of embryonal carcinoma component are positive for AE1/AE3 and CD30, negative for CD117, D2-40, and HCG. Tumor cells of Yolk sac tumor component are positive for AE1/AE3 and Glypican3, negative for OCT3/4 and HCG. Positive and negative controls (internal if applicable) show appropriate results. This case was discussed with Dr. Burgess on June 03, 2019. Comments Surgical Pathology Cancer Case Summary Specimen Laterality _x_ Left Tumor Focality _x_ Unifocal Tumor Size Greatest dimension of main tumor mass (centimeters): 2.9 cm + Additional dimensions: 2.5 x 2.5 cm Histologic Type Mixed germ cell tumor _x_ Seminoma (specify percentage):35% _x_ Embryonal carcinoma (specify percentage):10% _x_ Yolk sac tumor, postpubertal type (specify percentage):10% _x_ Teratoma (specify percentage):45% Tumor Extension _x_ Tumor invades rete testis Margins Spermatic Cord Margin _x_ Uninvolved by tumor Lymphovascular Invasion _x_ Not identified Regional Lymph Nodes _x_ No lymph nodes submitted or found Pathologic Stage Classification (pTNM, AJCC 8th Edition) Primary Tumor (pT) _x_ pT1: Tumor limited to testis (including rete testis invasion) without lymphovascular invasion Regional Lymph Nodes (pN) pNX: Regional lymph node cannot be assessed Specify site(s), if + Pre-Orchiectomy Serum Tumor Markers + _x_ Alpha-fetoprotein (AFP) elevation + Post-Orchiectomy Serum Tumor Markers + _x_ Unknown + Additional Pathologic Findings + _x_ Germ cell neoplasia in situ (GCNIS) + _x_ Atrophy Electronically Signed Cliff Moreno M.D. Gross Description Received in formalin, labeled "left testicle with tumor" is a 47 g, 5.4 x 4.0 x 2.8 cm intact orchiectomy. The spermatic cord measures 7 cm in length x 1.1 cm in diameter. The tunica vaginalis appears intact. Sections reveal a 2.9 x 2.5 x 2.5 cm lesion. The lesion is well-circumscribed and has a white cut surface. No necrosis or hemorrhage seen. The lesion is confined to the testicular parenchyma grossly. The remaining parenchyma is white and focal fibrotic change. No additional lesions are grossly identified. [employer] sections are submitted in 16 cassettes. 1: spermatic cord margin, en face; 2: Proximal section of spermatic cord; 3: Midsection of spermatic cord; 4 to 8: full face, continuing sections of tumor and adjacent tissue. 9 to 10: Additional section of the tumor; 11: Hilar soft tissue; 12 to 13: Tumor with adjacent to fibrotic area; 14 to 16: Additional sections of tumor and adjacent tissue. KWS/05/30/2019 sulki/05/30/2019
== END 2019-06-02 17:50 | disposition home or self-care (01) | DRG 483 ==
LOC: JER 18:18 → JERBED 21:57 → J7W 05-27 13:01
PROVIDERS: ADMIT Internal Medicine; ATTEND Nurse Practitioner Acute Care
PROC: 0VTB0ZZ Resection of Left Testis, Open Approach (ICD-10-PCS; principal; 2019-05-29 10:00)
DX: C62.92 Malignant neoplasm of left testis, unspecified whether descended or undescended (principal); N17.9 Acute kidney failure, unspecified; G47.33 Obstructive sleep apnea (adult) (pediatric); T36.1X5A Adverse effect of cephalosporins and other beta-lactam antibiotics, initial encounter; T78.3XXA Angioneurotic edema, initial encounter
CPT/HCPCS: 36415; 71045-TC-FY; 72197-TC; 74177-TC; 76870-TC; 80053; 81003; 82105; 83615; 83735; 84702; 85025; 85027; 85610; 85730; 86850; 86900; 86901; 87086; 87491; 87591; 88309-TC; 93005; 93010; 94010; 94760; 99284-25; A9579; J0131; J7030; Q9967